=== PATIENT | male | born 1950 | race Caucasian/White ===

== ENCOUNTER 2020-10-14 02:40 | Outpatient (CLI) | payer MEDICARE, BC, SELFPAY ==
--- NOTE | 2020-10-14 07:15 | DI.US_ITS ---
Exam(s) US PROSTATE BIOPSY EXAM: guidance for prostate biopsy,PROSTATE DISORDER,N42.9,SECONDARY NEOPLASM OF COMPARISON: No exams were available for comparison TECHNIQUE: Ultrasound performed using standard protocol. FINDINGS: Sonography was provided for Dr. Berry during the performance of a ultrasound guided transrectal pros ott biopsy. Please refer to the procedure report for complete details. Prostatic volume is 85.3 cc. DATA REPOSITORY:
--- NOTE | 2020-10-14 08:40 | PROST_PTH ---
PATIENT: Anoop Preciado LOC: [facility] U#:[id number] AGE/SX: 70/M ROOM: RE10/14/[address]: Mario Berry MD : [id number] BED: DIS: 10/14/2020 SPEC #: [id number] RECD: 10/14/20 09:45 STATUS: RODRICK REAlexa #: [id number] LAURI: 10/14/20 08:[address]: Mario Berry DEPT: Surgical Specimen RECD BY: Yee Ochoa ENTERED: 10/14/20 10:06 SP TYPE: PROST OTHR DR: Johann Gordon Stephen Tissues: 1 - PROSTATE CURRETTINGS 2 - PROSTATE CURRETTINGS 3 - PROSTATE CURRETTINGS 4 - PROSTATE CURRETTINGS 5 - PROSTATE CURRETTINGS 6 - PROSTATE CURRETTINGS 7 - PROSTATE CURRETTINGS 8 - PROSTATE CURRETTINGS 9 - PROSTATE CURRETTINGS 10 - PROSTATE CURRETTINGS 11 - PROSTATE CURRETTINGS 12 - PROSTATE CURRETTINGS Procedures: GROSS AND MICRO LEVEL 4 Comments: [id number]
--- NOTE | 2020-10-14 09:23 | W.PM.OP ---
Date of service: 10/14/20 Time of Service: 09:23 Operative Note Operative Note DATE OF PROCEDURE: 10/14/20 PRE-OP DIAGNOSIS: Elevated PSA with metastasis to bone PROCEDURE: Transrectal ultrasound-guided biopsy of prostate SURGEON: Mario Berry ANESTHESIA TYPE: Local By Surgeon Refer to Anesthesia Record ESTIMATED BLOOD LOSS: 10 PATHOLOGY: other (Total of 12 laterally directed prostate biopsies) COMPLICATIONS: None Patient was transported to: no change Patient's condition: stable Indications: This is a 70-year-old gentleman who complained of weight loss and bone pain. He was found to have a PSA of 1420 ng/mL and on CT scan, he has multiple bony metastases consistent with a primary prostate cancer. He comes in for prostate biopsy to obtain a tissue diagnosis Findings: Prostate volume 85 cc Asymmetry of seminal vesicles with left side larger than right Loss of delineation between transition and peripheral zones Procedure Description: The patient was given a mechanical and antibiotic bowel prep. He was brought to the radiology suite on 05/17/2020. He was placed in the left lateral position. Transrectal imaging of the prostate was then performed using a variable megahertz transducer. The prostate was imaged in transverse and longitudinal planes. The prostatic volume was calculated to be 85 cc. The seminal vesicles were asymmetric with the left side being larger than the right raising concern for seminal vesicle involvement. There was loss of architecture between the peripheral and transition zones. A periprostatic nerve block was then performed using 1% Xylocaine without epinephrine. A total of 12 laterally directed biopsies were taken, labeled and sent to pathology for permanent section. The patient tolerated this procedure with no complications.
== END 2020-10-14 03:00 ==
PROVIDERS: PCP Family Medicine; Visit Provider Urology
DX: C61 Malignant neoplasm of prostate (principal); R97.20 Elevated prostate specific antigen [PSA]; C79.51 Secondary malignant neoplasm of bone; R63.4 Abnormal weight loss
CPT/HCPCS: 55700; 76872; 76942; 88305

== ENCOUNTER 2020-11-25 10:10 | Outpatient (RCR) | payer MEDICARE, BC, SELFPAY ==
[2020-11-25] MEDS: Normal Saline Flush 10 ML SYR IVP (10:34)
[2020-11-25 10:43] LABS: Abs Immature Grans 0.01 10^3/uL (0.0-0.06); Absolute Basophil Count 0.06 10^3/uL (0.0-0.2); Absolute Eosinophil Count 0.38 10^3/uL (0.0-0.7); Absolute Lymphocyte Count 1.11 10^3/uL (1.2-3.4); Absolute Monocyte Count 0.47 10^3/uL (0.1-0.8); Absolute Neutrophil Count 2.56 10^3/uL (1.2-6.7); Basophils % 1.3; Eosinophils % 8.3; HCT 35.7 % (40.0-50.0); HGB 12.2 g/dL (13.5-17.5); Immature Grans % 0.2; Lymphocytes % 24.2; MCHC 34.2 % (32.0-36.0); MCV 87.9 fL (80-95); MPV 9.3 fL (8.0-11.0); Monocytes % 10.2; Neutrophils % 55.8; Nucleated RBC 0 %; Platelet Count 234 10^3/uL (130-400); RBC 4.06 10^6/uL (4.36-5.78); RDW 12.7 % (11.8-14.1); RDW-SD 40.8 fL; WBC 4.59 10^3/uL (4.4-10.8)
[2020-11-25 11:02] LABS: ALT 21 U/L (16-63); AST 17 U/L (15-37); Albumin 3.9 g/dL (3.4-5.0); Alkaline Phosphatase 705 U/L (46-116); Anion Gap 10.4 mmol/L (3-11); BUN 26 mg/dL (7-18); Bilirubin, Total 0.5 mg/dL (0.2-1.0); CO2 23.6 mmol/L (21.0-32.0); CREATININE 0.8 mg/dL (0.70-1.30); Calcium 8.6 mg/dL (8.5-10.1); Chloride 107 mmol/L (98-107); Glucose 118 mg/dL (74-106); Potassium 3.7 mmol/L (3.5-5.1); Sodium 141 mmol/L (136-145); Total Protein 6.7 g/dL (6.4-8.2)
[2020-11-26 21:14] LABS: PSA, Ultrasensitive 39.2 ng/mL (<= 6.5)
[2020-11-28 12:05] LABS: Testosterone, Total <7.0 ng/dL (240-950)
== END 2020-12-09 23:59 | disposition home or self-care (01) ==
LOC: INF 10:10
PROVIDERS: PCP Family Medicine; Visit Provider Internal Medicine
DX: C61 Malignant neoplasm of prostate (principal); C79.51 Secondary malignant neoplasm of bone
CPT/HCPCS: 36415; 80053; 84153; 84403; 85025

== ENCOUNTER 2021-01-06 02:49 | Outpatient (RCR) | payer MEDICARE, BC, SELFPAY ==
[2020-12-16] MEDS: Normal Saline Flush 10 ML SYR IVP (10:48)
[2020-12-16 11:02] LABS: Abs Immature Grans 0.25 10^3/uL (0.0-0.06); Absolute Basophil Count 0.11 10^3/uL (0.0-0.2); Absolute Eosinophil Count 0.06 10^3/uL (0.0-0.7); Absolute Lymphocyte Count 1.33 10^3/uL (1.2-3.4); Absolute Monocyte Count 0.68 10^3/uL (0.1-0.8); Absolute Neutrophil Count 4.32 10^3/uL (1.2-6.7); Basophils % 1.6; Eosinophils % 0.9; HCT 36.2 % (40.0-50.0); Immature Grans % 3.7; Lymphocytes % 19.7; MCH 29.6 pg (27.0-33.0); MCHC 33.1 % (32.0-36.0); MCV 89.4 fL (80-95); MPV 9.4 fL (8.0-11.0); Monocytes % 10.1; Nucleated RBC 0 %; Platelet Count 285 10^3/uL (130-400); RBC 4.05 10^6/uL (4.36-5.78); RDW 13.2 % (11.8-14.1); RDW-SD 42.4 fL; WBC 6.75 10^3/uL (4.4-10.8)
[2020-12-16 11:18] LABS: ALT 26 U/L (16-63); AST 18 U/L (15-37); Albumin 3.9 g/dL (3.4-5.0); Alkaline Phosphatase 355 U/L (46-116); Anion Gap 7.5 mmol/L (3-11); BUN 19 mg/dL (7-18); Bilirubin, Total 0.4 mg/dL (0.2-1.0); CO2 28.5 mmol/L (21.0-32.0); CREATININE 0.8 mg/dL (0.70-1.30); Calcium 8.8 mg/dL (8.5-10.1); Chloride 107 mmol/L (98-107); Glucose 105 mg/dL (74-106); Potassium 4.2 mmol/L (3.5-5.1); Sodium 143 mmol/L (136-145)
[2020-12-17 13:13] LABS: PSA, Ultrasensitive 25.5 ng/mL (<= 6.5)
[2020-12-19 14:48] LABS: Testosterone, Total <7.0 ng/dL (240-950)
[2021-01-06] MEDS: Normal Saline Flush 10 ML SYR IVP (10:56)
[2021-01-06 11:02] LABS: Abs Immature Grans 0.06 10^3/uL (0.0-0.06); Absolute Basophil Count 0.07 10^3/uL (0.0-0.2); Absolute Eosinophil Count 0.11 10^3/uL (0.0-0.7); Absolute Lymphocyte Count 0.93 10^3/uL (1.2-3.4); Absolute Monocyte Count 0.63 10^3/uL (0.1-0.8); Absolute Neutrophil Count 4.04 10^3/uL (1.2-6.7); Basophils % 1.2; Eosinophils % 1.9; HCT 35.9 % (40.0-50.0); HGB 11.4 g/dL (13.5-17.5); Lymphocytes % 15.9; MCH 28.8 pg (27.0-33.0); MCHC 31.8 % (32.0-36.0); MCV 90.7 fL (80-95); MPV 9.3 fL (8.0-11.0); Monocytes % 10.8; Neutrophils % 69.2; Nucleated RBC 0 %; Platelet Count 293 10^3/uL (130-400); RBC 3.96 10^6/uL (4.36-5.78); RDW 14.6 % (11.8-14.1); RDW-SD 47.9 fL; WBC 5.84 10^3/uL (4.4-10.8)
[2021-01-06 11:15] LABS: ALT 25 U/L (16-63); AST 19 U/L (15-37); Albumin 3.9 g/dL (3.4-5.0); Alkaline Phosphatase 209 U/L (46-116); Anion Gap 6.1 mmol/L (3-11); BUN 20 mg/dL (7-18); Bilirubin, Total 0.5 mg/dL (0.2-1.0); CO2 27.9 mmol/L (21.0-32.0); CREATININE 0.9 mg/dL (0.70-1.30); Calcium 8.8 mg/dL (8.5-10.1); Chloride 106 mmol/L (98-107); Glucose 105 mg/dL (74-106); Potassium 4.2 mmol/L (3.5-5.1); Sodium 140 mmol/L (136-145)
[2021-01-07 11:34] LABS: PSA, Ultrasensitive 25.2 ng/mL (<= 6.5)
[2021-01-08 13:11] LABS: Testosterone, Total <7.0 ng/dL (240-950)
== END 2021-01-08 23:59 | disposition home or self-care (01) ==
LOC: INF 02:49
PROVIDERS: PCP Family Medicine; Visit Provider Internal Medicine
DX: C61 Malignant neoplasm of prostate (principal); C79.51 Secondary malignant neoplasm of bone
CPT/HCPCS: 36415; 80053; 84153; 84403; 85025

== ENCOUNTER 2021-01-27 02:14 | Outpatient (RCR) | payer MEDICARE, BC, SELFPAY ==
[2021-01-27 10:53] LABS: Abs Immature Grans 0.07 10^3/uL (0.0-0.06); Absolute Basophil Count 0.08 10^3/uL (0.0-0.2); Absolute Eosinophil Count 0.06 10^3/uL (0.0-0.7); Absolute Lymphocyte Count 1.02 10^3/uL (1.2-3.4); Absolute Monocyte Count 0.65 10^3/uL (0.1-0.8); Absolute Neutrophil Count 4.14 10^3/uL (1.2-6.7); Basophils % 1.3; HCT 32.8 % (40.0-50.0); HGB 10.3 g/dL (13.5-17.5); Immature Grans % 1.2; Lymphocytes % 16.9; MCH 28.5 pg (27.0-33.0); MCHC 31.4 % (32.0-36.0); MCV 90.9 fL (80-95); MPV 9.2 fL (8.0-11.0); Monocytes % 10.8; Neutrophils % 68.8; Nucleated RBC 0 %; Platelet Count 301 10^3/uL (130-400); RBC 3.61 10^6/uL (4.36-5.78); RDW 16.3 % (11.8-14.1); RDW-SD 53.1 fL; WBC 6.02 10^3/uL (4.4-10.8)
[2021-01-27 11:08] LABS: ALT 26 U/L (16-63); AST 19 U/L (15-37); Albumin 3.7 g/dL (3.4-5.0); Alkaline Phosphatase 126 U/L (46-116); BUN 22 mg/dL (7-18); Bilirubin, Total 0.5 mg/dL (0.2-1.0); CREATININE 0.8 mg/dL (0.70-1.30); Calcium 8.7 mg/dL (8.5-10.1); Chloride 107 mmol/L (98-107); Glucose 97 mg/dL (74-106); Potassium 3.9 mmol/L (3.5-5.1); Sodium 143 mmol/L (136-145); Total Protein 6.8 g/dL (6.4-8.2)
[2021-01-29 11:50] LABS: PSA, Ultrasensitive 25.5 ng/mL (<= 6.5)
[2021-01-29 11:56] LABS: Testosterone, Total <7.0 ng/dL (240-950)
== END 2021-02-08 23:59 | disposition home or self-care (01) ==
LOC: INF 02:14
PROVIDERS: PCP Family Medicine; Visit Provider Internal Medicine
DX: C61 Malignant neoplasm of prostate (principal); C79.51 Secondary malignant neoplasm of bone
CPT/HCPCS: 36415; 80053; 84153; 84403; 85025

== ENCOUNTER 2021-03-10 02:03 | Outpatient (RCR) | payer MEDICARE, BC, SELFPAY ==
[2021-02-18 10:53] LABS: Abs Immature Grans 0.03 10^3/uL (0.0-0.06); Absolute Basophil Count 0.09 10^3/uL (0.0-0.2); Absolute Eosinophil Count 0.06 10^3/uL (0.0-0.7); Absolute Lymphocyte Count 1.24 10^3/uL (1.2-3.4); Absolute Monocyte Count 0.66 10^3/uL (0.1-0.8); Absolute Neutrophil Count 3.79 10^3/uL (1.2-6.7); Basophils % 1.5; HCT 37.2 % (40.0-50.0); HGB 11.8 g/dL (13.5-17.5); Immature Grans % 0.5; Lymphocytes % 21.1; MCH 28.4 pg (27.0-33.0); MCHC 31.7 % (32.0-36.0); MCV 89.6 fL (80-95); MPV 9.5 fL (8.0-11.0); Monocytes % 11.2; Neutrophils % 64.7; Nucleated RBC 0 %; Platelet Count 297 10^3/uL (130-400); RBC 4.15 10^6/uL (4.36-5.78); RDW 16.4 % (11.8-14.1); RDW-SD 53.5 fL; WBC 5.87 10^3/uL (4.4-10.8)
[2021-02-18 11:10] LABS: Calcium 9.1 mg/dL (8.5-10.1); Glucose 91 mg/dL (74-106)
[2021-02-18 11:11] LABS: ALT 25 U/L (16-63); AST 19 U/L (15-37); Alkaline Phosphatase 120 U/L (46-116); Anion Gap 7.3 mmol/L (3-11); BUN 22 mg/dL (7-18); Bilirubin, Total 0.4 mg/dL (0.2-1.0); CO2 28.7 mmol/L (21.0-32.0); CREATININE 0.8 mg/dL (0.70-1.30); Chloride 108 mmol/L (98-107); Potassium 4.1 mmol/L (3.5-5.1); Sodium 144 mmol/L (136-145); Total Protein 7.2 g/dL (6.4-8.2)
[2021-02-19 15:10] LABS: PSA, Ultrasensitive 15.5 ng/mL (<= 6.5)
[2021-02-21 16:53] LABS: Testosterone, Total <7.0 ng/dL (240-950)
[2021-03-10 09:35] LABS: Abs Immature Grans 0.04 10^3/uL (0.0-0.06); Absolute Basophil Count 0.09 10^3/uL (0.0-0.2); Absolute Eosinophil Count 0.05 10^3/uL (0.0-0.7); Absolute Lymphocyte Count 1.05 10^3/uL (1.2-3.4); Absolute Monocyte Count 0.66 10^3/uL (0.1-0.8); Absolute Neutrophil Count 2.83 10^3/uL (1.2-6.7); Basophils % 1.9; Eosinophils % 1.1; HCT 37.1 % (40.0-50.0); HGB 11.8 g/dL (13.5-17.5); Immature Grans % 0.8; Lymphocytes % 22.2; MCH 27.8 pg (27.0-33.0); MCHC 31.8 % (32.0-36.0); MCV 87.5 fL (80-95); MPV 9.4 fL (8.0-11.0); Nucleated RBC 0 %; Platelet Count 247 10^3/uL (130-400); RBC 4.24 10^6/uL (4.36-5.78); RDW 16.2 % (11.8-14.1); RDW-SD 51.8 fL; WBC 4.72 10^3/uL (4.4-10.8)
[2021-03-10 09:52] LABS: ALT 20 U/L (16-63); AST 15 U/L (15-37); Albumin 3.8 g/dL (3.4-5.0); Alkaline Phosphatase 108 U/L (46-116); Anion Gap 6.6 mmol/L (3-11); BUN 19 mg/dL (7-18); Bilirubin, Total 0.4 mg/dL (0.2-1.0); CO2 28.4 mmol/L (21.0-32.0); CREATININE 0.7 mg/dL (0.70-1.30); Calcium 8.7 mg/dL (8.5-10.1); Chloride 106 mmol/L (98-107); Glucose 91 mg/dL (74-106); Potassium 3.9 mmol/L (3.5-5.1); Sodium 141 mmol/L (136-145); Total Protein 6.4 g/dL (6.4-8.2)
[2021-03-11 18:26] LABS: PSA, Ultrasensitive 8.4 ng/mL (<= 6.5)
[2021-03-14 10:00] LABS: Testosterone, Total <7.0 ng/dL (240-950)
== END 2021-03-10 23:59 | disposition home or self-care (01) ==
LOC: INF 02:03
PROVIDERS: PCP Family Medicine; Visit Provider Internal Medicine
DX: C61 Malignant neoplasm of prostate (principal); C79.51 Secondary malignant neoplasm of bone
CPT/HCPCS: 36415; 80053; 84153; 84403; 85025

== ENCOUNTER 2021-05-05 03:47 | Outpatient (RCR) | payer MEDICARE, BC, SELFPAY ==
[2021-05-05 13:29] LABS: Absolute Basophil Count 0.04 10^3/uL (0.0-0.2); Absolute Eosinophil Count 0.13 10^3/uL (0.0-0.7); Absolute Lymphocyte Count 0.85 10^3/uL (1.2-3.4); Absolute Neutrophil Count 4.09 10^3/uL (1.2-6.7); Basophils % 0.7; Eosinophils % 2.4; HCT 41.2 % (40.0-50.0); HGB 13.8 g/dL (13.5-17.5); Lymphocytes % 15.4; MCH 29.5 pg (27.0-33.0); MCHC 33.5 % (32.0-36.0); MPV 9.9 fL (8.0-11.0); Monocytes % 7.3; Neutrophils % 74.2; Nucleated RBC 0 %; Platelet Count 209 10^3/uL (130-400); RBC 4.68 10^6/uL (4.36-5.78); RDW 15.4 % (11.8-14.1); RDW-SD 49.9 fL; WBC 5.51 10^3/uL (4.4-10.8)
[2021-05-05 13:42] LABS: ALT 21 U/L (16-63); AST 12 U/L (15-37); Alkaline Phosphatase 130 U/L (46-116); Anion Gap 8.2 mmol/L (3-11); BUN 19 mg/dL (7-18); Bilirubin, Total 0.6 mg/dL (0.2-1.0); CO2 28.8 mmol/L (21.0-32.0); Calcium 8.7 mg/dL (8.5-10.1); Chloride 106 mmol/L (98-107); Glucose 98 mg/dL (74-106); Sodium 143 mmol/L (136-145); Total Protein 6.8 g/dL (6.4-8.2)
[2021-05-06 13:39] LABS: PSA, Ultrasensitive 5.3 ng/mL (<= 6.5)
[2021-05-08 11:13] LABS: Testosterone, Total <7.0 ng/dL (240-950)
== END 2021-05-11 23:59 | disposition home or self-care (01) ==
LOC: INF 03:47
PROVIDERS: PCP Family Medicine; Visit Provider Internal Medicine
DX: C61 Malignant neoplasm of prostate (principal)
CPT/HCPCS: 36415; 80053; 84153; 84403; 85025

== ENCOUNTER 2021-06-09 01:37 | Outpatient (RCR) | payer MEDICARE, BC, SELFPAY ==
[2021-06-09 14:30] LABS: Abs Immature Grans 0.01 10^3/uL (0.0-0.06); Absolute Basophil Count 0.06 10^3/uL (0.0-0.2); Absolute Eosinophil Count 0.12 10^3/uL (0.0-0.7); Absolute Lymphocyte Count 1.04 10^3/uL (1.2-3.4); Absolute Monocyte Count 0.42 10^3/uL (0.1-0.8); Absolute Neutrophil Count 4.15 10^3/uL (1.2-6.7); Eosinophils % 2.1; HCT 41.1 % (40.0-50.0); HGB 14.1 g/dL (13.5-17.5); Immature Grans % 0.2; Lymphocytes % 17.9; MCH 30.9 pg (27.0-33.0); MCHC 34.3 % (32.0-36.0); MCV 90.1 fL (80-95); MPV 9.5 fL (8.0-11.0); Monocytes % 7.2; Neutrophils % 71.6; Nucleated RBC 0 %; Platelet Count 225 10^3/uL (130-400); RBC 4.56 10^6/uL (4.36-5.78); RDW 13.9 % (11.8-14.1); RDW-SD 45.6 fL
[2021-06-09 15:33] LABS: ALT 21 U/L (16-63); AST 19 U/L (15-37); Albumin 4.3 g/dL (3.4-5.0); Alkaline Phosphatase 92 U/L (46-116); Anion Gap 8.6 mmol/L (3-11); BUN 19 mg/dL (7-18); Bilirubin, Total 0.7 mg/dL (0.2-1.0); CO2 27.4 mmol/L (21.0-32.0); CREATININE 0.7 mg/dL (0.70-1.30); Calcium 8.4 mg/dL (8.5-10.1); Chloride 105 mmol/L (98-107); Glucose 101 mg/dL (74-106); Potassium 4.4 mmol/L (3.5-5.1); Sodium 141 mmol/L (136-145); Total Protein 6.9 g/dL (6.4-8.2)
[2021-06-11 17:40] LABS: PSA, Ultrasensitive 3.8 ng/mL (<= 6.5)
[2021-06-16 13:36] LABS: Testosterone, Total <7.0 ng/dL (240-950)
== END 2021-07-09 23:59 | disposition home or self-care (01) ==
LOC: INF 01:37
PROVIDERS: PCP Family Medicine; Visit Provider Internal Medicine
DX: C61 Malignant neoplasm of prostate (principal)
CPT/HCPCS: 36415; 80053; 84153; 84403; 85025

== ENCOUNTER 2021-07-14 04:02 | Outpatient (RCR) | payer MEDICARE, BC, SELFPAY ==
[2021-07-14 13:55] LABS: ALT 22 U/L (16-63); AST 13 U/L (15-37); Albumin 4.2 g/dL (3.4-5.0); Alkaline Phosphatase 65 U/L (46-116); Anion Gap 5.2 mmol/L (3-11); BUN 19 mg/dL (7-18); Bilirubin, Total 0.9 mg/dL (0.2-1.0); CO2 29.8 mmol/L (21.0-32.0); CREATININE 0.8 mg/dL (0.70-1.30); Calcium 8.3 mg/dL (8.5-10.1); Chloride 107 mmol/L (98-107); Glucose 95 mg/dL (74-106); Potassium 3.7 mmol/L (3.5-5.1); Sodium 142 mmol/L (136-145); Total Protein 6.8 g/dL (6.4-8.2)
== END 2021-08-08 23:59 | disposition home or self-care (01) ==
LOC: INF 04:02
PROVIDERS: PCP Family Medicine; Visit Provider Internal Medicine
DX: C81.00 Nodular lymphocyte predominant Hodgkin lymphoma, unspecified site (principal); C79.51 Secondary malignant neoplasm of bone
CPT/HCPCS: 36415; 80053

== ENCOUNTER 2021-09-08 12:50 | Outpatient (RCR) | payer MEDICARE, BC, SELFPAY ==
[2021-08-11 12:24] LABS: Abs Immature Grans 0.03 10^3/uL (0.0-0.06); Absolute Basophil Count 0.05 10^3/uL (0.0-0.2); Absolute Eosinophil Count 0.18 10^3/uL (0.0-0.7); Absolute Lymphocyte Count 1.04 10^3/uL (1.2-3.4); Absolute Monocyte Count 0.48 10^3/uL (0.1-0.8); Absolute Neutrophil Count 2.98 10^3/uL (1.2-6.7); Basophils % 1.1; Eosinophils % 3.8; HGB 13.6 g/dL (13.5-17.5); Immature Grans % 0.6; Lymphocytes % 21.8; MCH 32.3 pg (27.0-33.0); MCV 95 fL (80-95); MPV 9.6 fL (8.0-11.0); Monocytes % 10.1; Neutrophils % 62.6; Platelet Count 191 10^3/uL (130-400); RBC 4.21 10^6/uL (4.36-5.78); RDW 12.7 % (11.8-14.1); RDW-SD 43.8 fL; WBC 4.76 10^3/uL (4.4-10.8)
[2021-08-11 12:35] LABS: ALT 21 U/L (16-63); AST 12 U/L (15-37); Albumin 4.2 g/dL (3.4-5.0); Alkaline Phosphatase 64 U/L (46-116); BUN 19 mg/dL (7-18); Bilirubin, Total 0.6 mg/dL (0.2-1.0); CREATININE 0.8 mg/dL (0.70-1.30); Calcium 8.6 mg/dL (8.5-10.1); Chloride 107 mmol/L (98-107); Glucose 107 mg/dL (74-106); Potassium 4.1 mmol/L (3.5-5.1); Sodium 143 mmol/L (136-145); Total Protein 6.9 g/dL (6.4-8.2)
[2021-08-12 18:04] LABS: PSA, Ultrasensitive 2.8 ng/mL (<= 6.5)
[2021-08-15 16:04] LABS: Testosterone, Total <7.0 ng/dL (240-950)
[2021-09-08 13:45] LABS: Abs Immature Grans 0.03 10^3/uL (0.0-0.06); Absolute Basophil Count 0.06 10^3/uL (0.0-0.2); Absolute Eosinophil Count 0.14 10^3/uL (0.0-0.7); Absolute Monocyte Count 0.42 10^3/uL (0.1-0.8); Absolute Neutrophil Count 4.24 10^3/uL (1.2-6.7); Eosinophils % 2.3; HCT 39.6 % (40.0-50.0); HGB 14.3 g/dL (13.5-17.5); Immature Grans % 0.5; Lymphocytes % 18.4; MCH 33.3 pg (27.0-33.0); MCHC 36.1 % (32.0-36.0); MCV 92 fL (80-95); MPV 9.7 fL (8.0-11.0); Neutrophils % 70.8; Platelet Count 219 10^3/uL (130-400); RBC 4.29 10^6/uL (4.36-5.78); RDW 12.7 % (11.8-14.1); RDW-SD 42.8 fL; WBC 5.99 10^3/uL (4.4-10.8)
[2021-09-08 14:18] LABS: ALT 21 U/L (16-63); AST 11 U/L (15-37); Albumin 4.5 g/dL (3.4-5.0); Alkaline Phosphatase 61 U/L (46-116); BUN 21 mg/dL (7-18); Bilirubin, Total 0.7 mg/dL (0.2-1.0); CREATININE 0.9 mg/dL (0.70-1.30); Calcium 9.4 mg/dL (8.5-10.1); Chloride 108 mmol/L (98-107); Glucose 114 mg/dL (74-106); Potassium 3.9 mmol/L (3.5-5.1); Sodium 146 mmol/L (136-145); Total Protein 7.3 g/dL (6.4-8.2)
[2021-09-09 12:15] LABS: PSA, Ultrasensitive 3.6 ng/mL (<= 6.5)
[2021-09-10 16:15] LABS: Testosterone, Total <7.0 ng/dL (240-950)
== END 2021-09-08 23:59 | disposition home or self-care (01) ==
LOC: INF 12:50
PROVIDERS: PCP Family Medicine; Visit Provider Internal Medicine
DX: C61 Malignant neoplasm of prostate (principal)
CPT/HCPCS: 36415; 80053; 84153; 84403; 85025

== ENCOUNTER 2021-10-06 02:24 | Outpatient (RCR) | payer MEDICARE, BC, SELFPAY ==
[2021-10-06 13:05] LABS: Abs Immature Grans 0.02 10^3/uL (0.0-0.06); Absolute Basophil Count 0.04 10^3/uL (0.0-0.2); Absolute Eosinophil Count 0.22 10^3/uL (0.0-0.7); Absolute Lymphocyte Count 0.94 10^3/uL (1.2-3.4); Absolute Monocyte Count 0.48 10^3/uL (0.1-0.8); Absolute Neutrophil Count 5.18 10^3/uL (1.2-6.7); Basophils % 0.6; Eosinophils % 3.2; HCT 38.1 % (40.0-50.0); HGB 13.9 g/dL (13.5-17.5); Immature Grans % 0.3; Lymphocytes % 13.7; MCH 33.6 pg (27.0-33.0); MCHC 36.5 % (32.0-36.0); MCV 92 fL (80-95); Neutrophils % 75.2; Platelet Count 195 10^3/uL (130-400); RBC 4.14 10^6/uL (4.36-5.78); RDW 12.5 % (11.8-14.1); RDW-SD 41.8 fL; WBC 6.88 10^3/uL (4.4-10.8)
[2021-10-06 13:23] LABS: ALT 22 U/L (16-63); AST 16 U/L (15-37); Albumin 4.3 g/dL (3.4-5.0); Alkaline Phosphatase 53 U/L (46-116); Anion Gap 8.9 mmol/L (3-11); BUN 19 mg/dL (7-18); Bilirubin, Total 0.7 mg/dL (0.2-1.0); CO2 26.1 mmol/L (21.0-32.0); CREATININE 0.9 mg/dL (0.70-1.30); Calcium 8.8 mg/dL (8.5-10.1); Chloride 108 mmol/L (98-107); Glucose 103 mg/dL (74-106); Potassium 3.6 mmol/L (3.5-5.1); Sodium 143 mmol/L (136-145); Total Protein 7.1 g/dL (6.4-8.2)
[2021-10-07 16:13] LABS: PSA, Ultrasensitive 3.6 ng/mL (<= 6.5)
[2021-10-10 15:00] LABS: Testosterone, Total <7.0 ng/dL (240-950)
== END 2021-10-08 23:59 | disposition home or self-care (01) ==
LOC: INF 02:24
PROVIDERS: PCP Family Medicine; Visit Provider Internal Medicine
DX: C61 Malignant neoplasm of prostate (principal)
CPT/HCPCS: 36415; 80053; 84153; 84403; 85025

== ENCOUNTER 2021-10-11 09:43 | Emergency (ER) | payer MEDICARE, BC, SELFPAY ==
[2021-10-11] VITALS (53 sets, daily range): BP systolic 132–178; BP diastolic 68–91; PULSE 64–98; RESP 10–25; TEMP 36.2; O2SAT 94–98
--- NOTE | 2021-10-11 09:45 | RT.EKG_ITS ---
APPROVED REPORT Exam: Resting ECG Reason for Exam: syncope Patient Location: E HR:66 bpm ECG Measurements Heart Rate 66 AXIS RI 141 P 46 QRSd 103 QRS 63 QT 412 T 25 QTc 433 Conclusion Sinus rhythm...normal P axis, V-rate 60- 99 Atrial premature complexes...SV complexes w/ short R-R intvls
--- NOTE | 2021-10-11 10:30 | ED.GENADUL_ITS ---
Discharge Plan Disposition Patient Disposition: HOME Condition: Improving Discharge Details Clinical Impression: Vertigo, Adverse drug effect, Hypertension Primary Care Provider: Daniel Hunt ED Provider: Oxana Granados Home Meds and New Rx's Prescriptions: New meclizine 25 mg tablet 25 mg PO TID Qty: 10 0RF Continued lactase 4,500 unit tablet 4,500 unit PO DAILY PRN Rx Instructions: administer with meals and/or snacks montelukast [Singulair] 10 mg tablet 10 mg PO DAILY fluticasone propionate [Flovent HFA] 110 mcg/actuation HFA aerosol inhaler 1 puff inhalation BID acetaminophen [Tylenol Extra Strength] 500 mg tablet 500 mg PO Q6H PRN bicalutamide [Casodex] 50 mg tablet 50 mg PO DAILY Qty: 30 0RF Rx Instructions: start after biopsy has been completed abiraterone [Zytiga] 500 mg Tablet 500 mg PO DAILY Rx Instructions: must be taken on empty stomach, at least 1 hr before or 2 hrs after a meal/food Discharge Instructions Instructions: Vertigo (ED), Hypertension (ED) Additional Instructions: Your imaging and labs are reassuring here today. However, I am quite concerned that your vertigo as well as a dry cough versus you have a side effect of your lisinopril. Please stop the lisinopril. Please encourage hydration. Please call your primary care office on Tuesday to schedule prompt follow-up to discuss beginning other medication. If you develop recurrence of your dizziness you may take the meclizine as prescribed. If you develop chest pain or shortness of breath, other new/worsening symptoms please seek care urgently once again Referrals: Daniel Hunt [Primary Care Provider] - Discharge Data Discharge Date/Time-TO BE ENTERED AT DEPARTURE: 10/11/21 15:18 Medical Decision Making Patient is a pleasant 71-year-old gentleman presenting today with chief complaint of dizziness and a syncopal episode. Patient brought in via EMS, accompanied by his . He reports that during this morning he was having dizziness which she describes as the room spinning with movement. States that he first underwent he rolled over in bed, lasted for 20 seconds. Then had this once again when he began getting and ambulating out of bed. Again less than 2 seconds. When bathroom going to use the restroom, patient became vertiginous with the room spinning, this was about 20 seconds. During this time, patient states that he slumped and fell to the ground. Did not strike his head. Not sure if he lost consciousness or not. If he did it would have been less than a second. Reports return to full baseline. Denies any injury or pain currently. Denies any recent illness. Denies any fevers or chills. Denies any recent headache, visual change, nausea, vomiting, change in bowel or bladder habits. Does report new onset dry cough at the same time he began lisinopril which was 10 days ago. Patient also on Zytiga for prostate cancer and has been on this medication for the past 6 months. On exam, patient appears non-toxic. Hypertensive at 174/74, VS otherwise stable. Neurologic exam intact. No nystagmus, patient is not actively having symptoms. No abnormality in ears. Lungs clear, normal cardiac exam. No LE edema/pain. 2+ distal pulses. Differential at this time is quite broad. This may be associated with his recent addition of Lisinopril. He has had cough. The dizzineess is most consistent with vertigo. Patient has room spinning sensation with movement, lasts only about 20 seconds. He does not have other symptoms to go with central cause or Menieres. He is afebrile with no evidence of [employer] infection. He denies SOB, CP, palpitations to suggest cardiac abnormality. However, his comorbidies to increase risk, plan to screen with troponin and ECG. With cancer dx, also consid ered PE and will screen with d-dimer. Labs reviewed. Mild anemia. CMP without sigfnicant abnormality. D-dimer WNL, troponin WNL, TSH normal, no findings suggestive of infection. With the new onset of vertigo, will obtain CT of head. His exam is not consistent with centtral source but his PMH increases risk and his possible syncope is unclear. FINDINGS: Brain: The cerebral sulci and the ventricles are within normal limits for the patient's age. There is mild ventricular, cortical sulcal prominence consistent with mild atrophy.. There is no evidence of acute hemorrhage, mass or shift. There is no evidence of an acute cortical or major vascular territory infarct. No abnormal extra-axial collections are identified. Intracranial vascular calcification is noted but there is no evidence of hyperdense thrombus. Cerebral ventricles: No significant ventricular enlargement/hydrocephalus. Paranasal sinuses: No significant sinus opacification or fluid level. Minimal sinus mucoperiosteal thickening. Mastoid air cells: No significant mastoid opacification Bones/joints: There is no acute bony abnormality Soft tissues: Subcutaneous soft tissues are unremarkable The IMPRESSION: No acute findings. FINDINGS: Lungs: There is no new airspace consolidation or CHF Pleural spaces: A large pleural effusion, or pneumothorax is not seen Heart/Mediastinum: Heart, mediastinum are unchanged. Bones/joints: There are multiple old right posterior rib fractures as seen on the patient's prior exam. The bony structures are diffusely heterogeneous consistent with the patient's known bony metastatic disease. There is mild compression deformity of several vertebrae, also seen on the patient's prior CT, this appears progressed within the midthoracic spine. IMPRESSION: 1. No evidence of active airspace disease 2. Bony structures are diffusely heterogeneous consistent with patient's known bony metastatic disease seen on CT exam. Interval increase in compression of a midthoracic vertebrae when compared with the patient's prior CT examination. Patient aware of bony abnormalities associated with prostate cancer. Will give disk so this can be cmopared by his oncology team. Repeat troponin WNL. Patient given Meclizine. Ambulated about departmeent with full resolution of symptoms. He remains hemodynamically stable and feels safe for discarge. Timing suggests this may be associated with Lisinopril and is certainly within the side effect profile. Will consult with PCP regarding stopping the Lisinopril and beginning another medication. Spoke with Dr. Mendoza with [facility] who recommended stopping the Lisinopril but holding on starting other medications. Discussed this with patient and his . They are in agreemetn with this plan. Will continue with Meclizine if he has recurrent symptoms. Strict return precautions given. Advised close f/u with PCP this week. All of his quesitons and concerns were addressed, he is in agreement with this plan. HPI General Date/Time Provider Initiated Documentation: 10/11/21 10:22 . Limitations to Documentation: no limitations . Information obtained by: patient, family, EMS and RN notes reviewed . History of Present Illness 71 year old M presents to the emergency department with the chief complaint of dry cough, vertigo, fall with possible LOC, described as moderate, with intensity rated at 1 (patient denies any pain). Patient started experiencing this day(s) (cough x 10 days, vertigo this AM intermittent) and it has been intermittent. Immobilization improves symptom(s), Movement worsens symptoms (rolling in bed, standing up to ambulate) . Patient notes cough (reports this started after beginning on lisinopril) and syncope (unsure what happened, not sure if he lost consciousness but feels if he did <1sec); denies confusion, chest pain, diaphoresis, fever/chills, headaches, malaise, nausea/vomiting, rash, seizure and shortness of breath. Related Data Home Medications Medication Instructions Recorded Confirmed bicalutamide 50 mg tablet (Casodex) 50 mg PO DAILY prostate cancer #30 10/09/20 10/11/21 tabs acetaminophen 500 mg tablet 500 mg PO Q6H PRN 10/14/20 10/11/21 (Tylenol Extra Strength) fluticasone propionate 110 1 puff inhalation BID 10/14/20 10/11/21 mcg/actuation HFA aerosol inhaler (Flovent HFA) lactase 4,500 unit tablet 4,500 unit PO DAILY PRN 10/14/20 10/11/21 montelukast 10 mg tablet 10 mg PO DAILY 10/14/20 10/11/21 (Singulair) abiraterone 500 mg tablet (Zytiga) 500 mg PO DAILY 10/11/21 10/11/21 meclizine 25 mg tablet 25 mg PO TID #10 tabs 10/11/21 Previous Rx's Medication Instructions Recorded bicalutamide 50 mg tablet (Casodex) 50 mg PO DAILY prostate cancer #30 10/09/20 tabs meclizine 25 mg tablet 25 mg PO TID #10 tabs 10/11/21 Allergies Allergy/AdvReac Type Severity Reaction Status Date / Time lactose Allergy Unverified 10/11/21 09:52 General Stated Complaint: Dizzy/Sync ROSAURA: 3 Review of Systems Constitutional Constitutional: Reports as per HPI, Denies chills, Denies fever(s), Denies frequent falls, Denies headache(s) and Denies weakness Eyes Eyes: Reports as per HPI, Denies blurry vision and Denies change in vision ENT Ears, Nose, Mouth, and Throat: Denies headache(s) and Denies neck pain Cardiovascular Cardiovascular: Reports as per HPI, Denies chest pain, Denies lightheadedness, Denies radiating jaw, neck or arm pain, Denies dyspnea and Denies dyspnea on exertion Respiratory Respiratory: Reports as per HPI, Denies chest congestion, Denies cough, Denies dyspnea and Denies dyspnea on exertion Gastrointestinal Gastrointestinal: Reports as per HPI, Denies abdominal pain, Denies change in bowel habits, Denies nausea and Denies vomiting Genitourinary Genitourinary: Reports system reviewed and no additional complaints, except as documented (denies change in urinary habits) Musculoskeletal Musculoskeletal: Reports as per HPI, Denies back pain, Denies myalgias, Denies muscle cramps, Denies neck pain and Denies numbness Integumentary/Breasts Skin/Breast: Reports as per HPI and Denies rash Neurologic Neurologic: Reports as per HPI, Denies abnormal movements, Denies abnormal speech, Denies behavioral changes, Denies confusion, Denies frequent falls, Denies headache(s), Denies localized weakness, Denies numbness, Denies sensory deficit and Denies weakness Psychiatric Psychiatric: Denies behavioral changes and Denies confusion PFSH All Active Problems (Updated 10/11/21 @ 15:11 by RHONA Bernal) Vertigo (Acute) Adverse drug effect (Acute) Hypertension (Chronic) Bilateral impacted cerumen (Acute) Sensorineural hearing loss (SNHL) of both ears (Acute) Bone metastasis (Acute) Elevated PSA (Acute) Social History Smoking/Tobacco Use Status: Never Smoking risk assessment performed?: Yes Alcohol Intake: current Alcohol Intake frequency: a few times a week Alcohol type: beer Drug use: Never Substance use type: does not use Do you feel safe at home: Yes Do you feel safe in your relationship?: Yes Exam Const General: cooperative, healthy appearing, comfortable, no acute distress, well developed and well groomed Nutritional Appearance: average body habitus and well nourished Orientation: alert, awake and oriented x3 HENMT Head: normal to inspection, no palpable skull fracture, normocephalic and atraumatic Ears: hearing grossly normal bilaterally, external ears normal and TM's normal bilaterally General nose exam: external nose normal Mouth: oral mucosae normal and moist mucous membranes Throat: posterior oropharynx normal Eyes General: appearance normal, both eyes and all related structures Alignment and Position: alignment normal Periorbital: periorbital findings normal Eyelids: eyelids normal Sclera: sclerae normal Cornea: corneas normal Pupils: PERRL EOM: EOM intact bilaterally and No nystagmus Neck Neck: normal visual inspection, full ROM, no lymphadenopathy and no meningeal signs Resp Effort & Inspection: normal respiratory effort, able to speak in complete sentences and no respiratory distress Auscultation: clear to auscultation bilaterally, no rales, no rhonchi and no wheezes Cardio Rate: regular rate Rhythm: regular rhythm Heart Sounds: S1 normal and S2 normal GI Inspection: normal to inspection and non-distended Palpation: soft, no hepatosplenomegaly, not firm, no guarding, not rigid and nontender Percussion: normal to percussion Auscultation: normal bowel sounds Back/Spine/Pelvis Cervical Spine: normal cervical lordosis and cervical ROM normal Skin General skin exam: no rashes or lesions noted Neuro General: patient alert, patient awake and patient oriented x3 Cranial Nerves: CN's II-XI intact bilaterally and no nystagmus Cognition: normal cognition Speech: speech normal Gait: normal gait Motor: muscle tone normal throughout, strength 5/5 throughout, no pronator drift, no movement abnormalities noted and no fasciculations Sensory Exam: no sensory deficits noted Coordination: [id number] test normal, dapg-np-[id number] test normal, Romberg test normal, Does not sway with eyes open and rapid alternating movement UE normal Extrem General: normal to inspection, capillary refill normal, no pedal edema and no calf tenderness Psych Appearance: grossly normal and well kempt Mental Status: mental status grossly normal Speech and Movement: speech and movement normal Course Vital Signs Vital signs: Vital Signs Temperature 36.2 C L 10/11/21 09:45 Pulse 66 10/11/21 09:45 Respiratory Rate 14 10/11/21 09:45 Blood Pressure 174/74 H 10/11/21 09:45 Pulse Oximetry 97 10/11/21 09:45 Temperature 36.2 C L 10/11/21 09:45 Pulse 66 10/11/21 09:45 Respiratory Rate 14 10/11/21 09:45 Respiratory Effort 10/11/21 09:54 Respiratory Depth Normal 10/11/21 09:54 Respiratory Pattern Normal 10/11/21 09:54 Blood Pressure 174/74 H 10/11/21 09:45 Blood Pressure Position Supine 10/11/21 09:45 Pulse Oximetry 97 10/11/21 09:45 Oxygen Delivery Method Room Air 10/11/21 09:45 Oxygen Flow Rate 0 10/11/21 09:45 Pain Level 0 10/11/21 09:45 PAWSS Have you Been Recently Intoxicated or Drunk Within the Last 30 days?: No Have you Ever Experienced Previous Episodes of Alcohol Withdrawal?: No Have you ever Experienced Withdrawal Seizures?: No Have you ever Experienced Delirium Tremens(DT)s?: No Have you ever undergone Alcohol Rehabilitation Treatment (i.e, inpt ot outpatient treatment programs)?: No Have you ever Experienced Blackouts?: No Have you ever Combined Alcohol with other Downers within the last 90 days?: No Have you ever Combined Alcohol with any other Substance of Abuse during the last 90 days?: No Positive Blood Alcohol level on Presentation? [PCS.BAL]: No Evidence of Increased Autonomic Activity (i.e. HR>120, tremor, sweating, agitation, nausea)?: No Result: 0
--- NOTE | 2021-10-11 10:45 | DI.CT_ITS ---
Exam(s) CT HEAD WO EXAM: CT HEAD WO CLINICAL HISTORY: vertigo with syncope. TECHNIQUE: Imaging Protocol: Axial computed tomography images with coronal and sagittal reformatted images were created and reviewed COMPARISON: No exams were available for comparison FINDINGS: There are no skull fractures nor fluid in the visualized paranasal sinuses. There is no evidence of intracranial hemorrhage, mass effect, or shift of midline structures. There are no extra-axial fluid collections. The ventricles are not enlarged or shifted and there is no blo od within the ventricular system nor within the basal cisterns. IMPRESSION: No acute intracranial findings on this noninfused CT scan of the brain. RADIATION DOSE DELIVERED: 758.56mGy.cm Total DLP DATA REPOSITORY: All CT scans at this facility are submitted to the National Radiology Data Registry (NRDR) Dose Index Registry (DIR) with the [employer] ([employer]). RADIATION OPTIMIZATION: All CT scans at this facility use at least one of these dose optimization te chniques: automated exposure control; mA and/or kV adjustment per patient size (includes targeted exa ms where dose is matched to clinical indication); or iterative reconstruction.
[2021-10-11 10:59] LABS: Abs Immature Grans 0.01 10^3/uL (0.0-0.06); Absolute Basophil Count 0.04 10^3/uL (0.0-0.2); Absolute Lymphocyte Count 0.95 10^3/uL (1.2-3.4); Absolute Monocyte Count 0.46 10^3/uL (0.1-0.8); Basophils % 0.9; Eosinophils % 4.5; HGB 12.9 g/dL (13.5-17.5); Immature Grans % 0.2; Lymphocytes % 21.3; MCH 32.6 pg (27.0-33.0); MCHC 34.9 % (32.0-36.0); MCV 93 fL (80-95); MPV 9.3 fL (8.0-11.0); Monocytes % 10.3; Neutrophils % 62.8; Platelet Count 178 10^3/uL (130-400); RBC 3.96 10^6/uL (4.36-5.78); RDW 12.3 % (11.8-14.1); RDW-SD 42.1 fL; WBC 4.46 10^3/uL (4.4-10.8)
--- NOTE | 2021-10-11 11:00 | DI.RAD_ITS ---
Exam(s) XR CHEST 2V PA LATERAL EXAM: XR CHEST 2V PA LATERAL CLINICAL HISTORY: syncope. TECHNIQUE: 2D digital imaging was performed. COMPARISON: CT CT CHEST W/ CNTRST from 10/08/2020 FINDINGS: 2 views: Heart size is normal. The mediastinum is not widened. Lungs are clear. No infiltrates nor pleural effusions. Compression fracture of vertebral bodies again noted. IMPRESSION: No acute pulmonary findings. Bones are heterogeneous consistent with patient's known history of osseous metastatic disease. DATA REPOSITORY: RADIATION DOSE DELIVERED:
[2021-10-11 11:21] LABS: ALT 20 U/L (16-63); AST 14 U/L (15-37); Alkaline Phosphatase 49 U/L (46-116); BUN 19 mg/dL (7-18); Bilirubin, Total 0.7 mg/dL (0.2-1.0); CREATININE 0.8 mg/dL (0.70-1.30); Calcium 8.6 mg/dL (8.5-10.1); Chloride 107 mmol/L (98-107); Glucose 104 mg/dL (74-106); Magnesium 2.1 mg/dL (1.8-2.4); Potassium 3.8 mmol/L (3.5-5.1); Sodium 141 mmol/L (136-145); TSH 0.94 uIU/mL (0.36-3.74); Total Protein 6.7 g/dL (6.4-8.2); Troponin I < 50 ng/L (<or=60)
--- NOTE | 2021-10-11 11:43 | DI.VRAD_ITS ---
PROCEDURE INFORMATION: Exam: CT Head Without Contrast Exam date and time: 10/11/2021 11:12 AM Age: 71 years old Clinical indication: Dizziness; Patient HX: Vertogo w/ syncope TECHNIQUE: Imaging protocol: Computed tomography of the head without contrast. Radiation optimization: All CT scans at this facility use at least one of these dose optimization techniques: automated exposure control; mA and/or kV adjustment per patient size (includes targeted exams where dose is matched to clinical indication); or iterative reconstruction. COMPARISON: No relevant prior studies available. FINDINGS: Brain: The cerebral sulci and the ventricles are within normal limits for the patient's age. There is mild ventricular, cortical sulcal prominence consistent with mild atrophy.. There is no evidence of acute hemorrhage, mass or shift. There is no evidence of an acute cortical or major vascular territory infarct. No abnormal extra-axial collections are identified. Intracranial vascular calcification is noted but there is no evidence of hyperdense thrombus. Cerebral ventricles: No significant ventricular enlargement/hydrocephalus. Paranasal sinuses: No significant sinus opacification or fluid level. Minimal sinus mucoperiosteal thickening. Mastoid air cells: No significant mastoid opacification Bones/joints: There is no acute bony abnormality Soft tissues: Subcutaneous soft tissues are unremarkable The IMPRESSION: No acute findings. Dictated and Authenticated by: Adriana Gustafson MD. Ordering:RORO Daigle MD
[2021-10-11 11:44] LABS: Bilirubin Negative (Negative); Blood Negative (Negative); Clarity Sl Cloudy (Clear); Glucose Negative (Negative); Ketones Negative (Negative); Leukocyte Esterase Negative (Negative); Nitrite Negative (Negative); Specific Gravity >= 1.030 (1.005-1.025); Urobilinogen 0.2 EU/dL (Up TO 0.2)
--- NOTE | 2021-10-11 11:49 | DI.VRAD_ITS ---
PROCEDURE INFORMATION: Exam: XR Chest Exam date and time: 10/11/2021 11:17 AM Age: 71 years old Clinical indication: Other: Syncope TECHNIQUE: Imaging protocol: Radiologic exam of the chest. Views: 2 views. COMPARISON: CT CHEST W/ CNTRST 10/08/2020 3:30 PM FINDINGS: Lungs: There is no new airspace consolidation or CHF Pleural spaces: A large pleural effusion, or pneumothorax is not seen Heart/Mediastinum: Heart, mediastinum are unchanged. Bones/joints: There are multiple old right posterior rib fractures as seen on the patient's prior exam. The bony structures are diffusely heterogeneous consistent with the patient's known bony metastatic disease. There is mild compression deformity of several vertebrae, also seen on the patient's prior CT, this appears progressed within the midthoracic spine. IMPRESSION: 1. No evidence of active airspace disease 2. Bony structures are diffusely heterogeneous consistent with patient's known bony metastatic disease seen on CT exam. Interval increase in compression of a midthoracic vertebrae when compared with the patient's prior CT examination. Dictated and Authenticated by: Adriana Gustafson MD. Ordering:RORO Daigle MD
[2021-10-11] MEDS: Meclizine 25 MG TAB PO (13:06)
[2021-10-11 13:35] LABS: D-Dimer 244 ng/mlFEU (<500)
--- NOTE | 2021-10-11 13:38 | NUR.NOTE ---
Pt. stood to use commode, became extremely dizzy and lowered himself to the floor. Nursing Note:
--- NOTE | 2021-10-11 14:00 | RT.EKG_ITS ---
APPROVED REPORT Exam: Resting ECG Reason for Exam: repeat Patient Location: E HR:71 bpm ECG Measurements Heart Rate 71 AXIS WI 140 P 31 QRSd 95 QRS 53 QT 407 T 13 QTc 442 Conclusion Sinus rhythm...normal P axis, V-rate 60- 99 Atrial premature complex...SV complex w/ short R-R interval
[2021-10-11 14:38] LABS: Troponin I < 50 ng/L (<or=60)
== END 2021-10-11 15:18 | disposition home or self-care (01) ==
PROVIDERS: Emergency Provider Physician Assistant; PCP Family Medicine
DX: R42 Dizziness and giddiness (principal); R05.9 Cough, unspecified; T46.4X5A Adverse effect of angiotensin-converting-enzyme inhibitors, initial encounter; I10 Essential (primary) hypertension; D64.9 Anemia, unspecified
CPT/HCPCS: 80053; 93005; 99284; 70450; 71046; 81003; 83735; 84443; 84484; 85025; 85379; 93010

== ENCOUNTER 2021-10-28 07:16 | Outpatient (RCR) | payer MEDICARE, BC, SELFPAY ==
[2021-10-28 12:27] LABS: Abs Immature Grans 0.04 10^3/uL (0.0-0.06); Absolute Basophil Count 0.07 10^3/uL (0.0-0.2); Absolute Eosinophil Count 0.15 10^3/uL (0.0-0.7); Absolute Lymphocyte Count 1.07 10^3/uL (1.2-3.4); Absolute Monocyte Count 0.41 10^3/uL (0.1-0.8); Absolute Neutrophil Count 3.83 10^3/uL (1.2-6.7); Basophils % 1.3; Eosinophils % 2.7; HCT 41.6 % (40.0-50.0); HGB 14.6 g/dL (13.5-17.5); Immature Grans % 0.7; Lymphocytes % 19.2; MCH 32.6 pg (27.0-33.0); MCHC 35.1 % (32.0-36.0); MCV 93 fL (80-95); MPV 9.7 fL (8.0-11.0); Monocytes % 7.4; Neutrophils % 68.7; Platelet Count 187 10^3/uL (130-400); RBC 4.48 10^6/uL (4.36-5.78); RDW-SD 41.1 fL; WBC 5.57 10^3/uL (4.4-10.8)
[2021-10-28 12:42] LABS: ALT 20 U/L (16-63); AST 13 U/L (15-37); Albumin 4.4 g/dL (3.4-5.0); Alkaline Phosphatase 60 U/L (46-116); Anion Gap 8.4 mmol/L (3-11); BUN 18 mg/dL (7-18); Bilirubin, Total 0.6 mg/dL (0.2-1.0); CO2 26.6 mmol/L (21.0-32.0); CREATININE 0.9 mg/dL (0.70-1.30); Calcium 8.9 mg/dL (8.5-10.1); Chloride 108 mmol/L (98-107); Glucose 122 mg/dL (74-106); Potassium 3.9 mmol/L (3.5-5.1); Sodium 143 mmol/L (136-145); Total Protein 7.3 g/dL (6.4-8.2)
[2021-10-29 16:30] LABS: PSA, Ultrasensitive 3.3 ng/mL (<= 6.5)
[2021-11-03 17:26] LABS: Testosterone, Total <7.0 ng/dL (240-950)
== END 2021-11-08 23:59 | disposition home or self-care (01) ==
LOC: INF 07:16
PROVIDERS: PCP Family Medicine; Visit Provider Internal Medicine
DX: C61 Malignant neoplasm of prostate (principal)
CPT/HCPCS: 36415; 80053; 84153; 84403; 85025

== ENCOUNTER 2021-11-13 09:59 | Observation (INO) | payer MEDICARE, BC, SELFPAY ==
[2021-11-13] VITALS (37 sets, daily range): BP systolic 105–160; BP diastolic 66–102; PULSE 57–99; RESP 12–23; TEMP 36.4–37.7; O2SAT 94–100
--- NOTE | 2021-11-13 09:59 | W.ED.GENAD ---
Discharge Plan Disposition Patient Disposition: [facility] Condition: Stable Discharge Details Clinical Impression: Acute upper GI bleeding Admit Date/Time: 11/13/21 12:22 Admit Provider: Herber Doll Attending Provider: Herber Doll Primary Care Provider: Daniel Hunt ED Provider: Kay Chin Discharge Data Discharge Date/Time-TO BE ENTERED AT DEPARTURE: 11/13/21 13:22 Medical Decision Making 1000 -- 71-year-old male with history of prostate cancer metastatic to bone currently on oral chemotherapy Zytiga since April 2021 presents with hematemesis since 730 this morning. It was reported to be a large amount of emesis at home and a small amount in route to the ED. Emesis basin inspected on arrival and notes approximately 20 cc of maroon-colored blood which is guaiac positive. EMS reported initial blood pressure was 79/60 and then repeat blood pressure 10 minutes later approximately 124/73. Vitals within normal limits on arrival. Patient appears comfortable and nontoxic. Normal oropharynx. Lungs clear bilaterally. Abdomen soft and nontender. Patient is taking prednisone since April 2021, current dose 5mg, so this may be be source of his GI bleed. Considering patient's age and history, will obtain screening labs including type and screen and start IV Protonix. Will obtain CT chest abdomen and pelvis and consult surgery. 1200 --labs and imaging reviewed. Hemoglobin 12. Normal white blood cell count. Magnesium 1.6, will replete. Troponin within normal limits. CT chest abdomen pelvis noted bony mets but no other acute findings. Patient has remained hemodynamically stable without any further vomiting. Case discussed with general surgery Dr. Gutierrez --no acute recommendations at this time and will monitor if endoscopy will be necessary. Case discussed with hospitalist who accepts patient for admission. Would like an additional 40 mg Protonix IV. Medical Records Medical records reviewed: Yes I reviewed the patient's medical records. Imaging Data Radiologic Study: Radiologist's impression: CT CHEST PE ABD ? PELVIS W CLINICAL HISTORY: ? maroon colored emesis,h/o prostate ca w/ bone mets. TECHNIQUE:? Imaging Protocol:? Axial CT angiography was performed with multi-slice acquisition and multi-planar and/or 3D reconstructions. CONTRAST MATERIAL:? Intravenous:? Omnipaque 350contrast volume:100 mL COMPARISON:? CT CT CHEST W/ CNTRST from 10/08/2020 CR,XR XR CHEST 2V PA ? LATERAL from 10/11/2021 FINDINGS: CHEST: Tracheobronchial tree: Patent where visualized. Pulmonary parenchyma: No focal consolidating infiltrates are seen.? There is again seen scarring in the lung bases.? No architectural distortion. Pulmonary Arteries: No evidence of filling defect to suggest pulmonary emboli. Mediastinum and Josefa: No dominant adenopathy or fluid collection. The esophagus is unremarkable. Visualized thyroid gland: Unremarkable.? Pleura: No effusion or pneumothorax. Heart: The heart is not dilated. No coronary artery calcifications are seen. No pericardial effusion. Aorta: Thoracic aorta non-dilated. No evidence of dissection.? Bones: There is diffuse sclerotic metastatic disease.? There again seen multiple thoracic compression fracture deformities which appears stable compared to the chest x-ray from 10/11/2021.? Several of these have developed and progressed since the CT scan of the chest from 10/08/2020 however.? There is retropulsion into the spinal canal resulting from the compression fractures at T6 and T2.? No significant central spinal canal stenosis results.? Soft tissues: Unremarkable.? ABDOMEN: Liver: Normal density. No measurable mass. Portal, Superior Mesenteric, and Splenic Veins: Unremarkable.? Gallbladder and Biliary Tract: No radiodense calculus or dilation. Pancreas: Normal density, no abnormal calcifications or inflammatory process. Spleen: Normal. Adrenals: No masses seen. Kidneys: Normal size, contour and axis. There is a nonobstructing stone in the lower pole of the left kidney.? Small simple renal cysts are present.? No follow-up is recommended.? Abdominal Aorta: Abdominal portion non-dilated. Atherosclerosis is present. Bowel: No obstruction or bowel wall thickening. No evidence of appendicitis.? There is diverticulosis seen in the colon but no evidence of acute diverticulitis.? Peritoneal Cavity: No ascites, collection or mesenteric inflammatory response. No free air. Lymph Nodes: Within normal limits. Bones: There is diffuse sclerotic metastatic disease.? Compression fracture deformities are seen at T12 and L3.? There is mild retropulsion of L3 but no significant central spinal canal stenosis is present.? Soft Tissues: There is a fat containing umbilical hernia.? Fat containing left inguinal hernia. PELVIS: Bladder: Symmetric distention, no gross wall thickening. Reproductive Organs: The prostate gland is enlarged.? Lymph Nodes: Within normal limits. Bones: Diffuse sclerotic metastatic disease.? IMPRESSION: 1. No evidence pulmonary embolism, thoracic aortic dissection or aneurysm. 2. Diffuse osseous metastatic disease with multiple known thoracic and lumbar compression fractures.? No definite new spinal fracture is identified. 3. Findings were discussed with the emergency department on the date of the examination.? Lab Data Lab results reviewed: Yes I reviewed the patient's lab results. Labs: Laboratory Tests Range/Units 11/13/21 11/13/21 11/13/21 10:00 10:00 10:00 WBC (4.4-10.8) 10^3/uL 8.93 RBC (4.36-5.78) 10^6/uL 3.72 L Hgb (13.5-17.5) g/dL 12.2 L Hct (40.0-50.0) % 35.0 L MCV (80-95) fL 94 MCH (27.0-33.0) pg 32.8 MCHC (32.0-36.0) % 34.9 RDW (11.8-14.1) % 12.1 Plt Count (130-400) 10^3/uL 193 MPV (8.0-11.0) fL 9.7 Immature Gran % 0.3 Neutrophils % 72.6 Lymphocytes % 16.3 Monocytes % 7.7 Eosinophils % 2.5 Basophils % 0.6 Nucleated RBC % (0.0-0.3) % 0.0 Absolute Neutrophils (1.2-6.7) 10^3/uL 6.48 Absolute Lymphocytes (1.2-3.4) 10^3/uL 1.46 Absolute Monocytes (0.1-0.8) 10^3/uL 0.69 Absolute Eosinophils (0.0-0.7) 10^3/uL 0.22 Absolute Basophils (0.0-0.2) 10^3/uL 0.05 PT (9.3-11.0) sec 11.7 H INR (0.9-1.1) 1.2 H APTT (21.0-27.5) sec 20.1 L Sodium (136-145) mmol/L 142 Potassium (3.5-5.1) mmol/L 3.4 L Chloride (98-107) mmol/L 105 Carbon Dioxide (21.0-32.0) mmol/L 31.8 Anion Gap (3-11) mmol/L 5.2 BUN (7-18) mg/dL 42 H Creatinine (0.70-1.30) mg/dL 0.9 Estimated GFR/1.73 m2 (mL/min/1.73m2) >= 60.00 Glucose (74-106) mg/dL 117 H Calcium (8.5-10.1) mg/dL 9.3 Magnesium (1.8-2.4) mg/dL 1.6 L Total Bilirubin (0.2-1.0) mg/dL 0.8 AST (15-37) U/L 15 ALT (16-63) U/L 22 Alkaline Phosphatase (46-116) U/L 41 L Troponin I (<or=60) ng/L < 50 Total Protein (6.4-8.2) g/dL 6.3 L Albumin (3.4-5.0) g/dL 3.7 Lipase (73-393) U/L 80 COVID-19 Source SARS-CoV-2 (PCR) (Negative) Patient ABO/Rh Antibody Screen Range/Units 11/13/21 11/13/21 10:00 12:15 WBC (4.4-10.8) 10^3/uL RBC (4.36-5.78) 10^6/uL Hgb (13.5-17.5) g/dL Hct (40.0-50.0) % MCV (80-95) fL MCH (27.0-33.0) pg MCHC (32.0-36.0) % RDW (11.8-14.1) % Plt Count (130-400) 10^3/uL MPV (8.0-11.0) fL Immature Gran % Neutrophils % Lymphocytes % Monocytes % Eosinophils % Basophils % Nucleated RBC % (0.0-0.3) % Absolute Neutrophils (1.2-6.7) 10^3/uL Absolute Lymphocytes (1.2-3.4) 10^3/uL Absolute Monocytes (0.1-0.8) 10^3/uL Absolute Eosinophils (0.0-0.7) 10^3/uL Absolute Basophils (0.0-0.2) 10^3/uL PT (9.3-11.0) sec INR (0.9-1.1) APTT (21.0-27.5) sec Sodium (136-145) mmol/L Potassium (3.5-5.1) mmol/L Chloride (98-107) mmol/L Carbon Dioxide (21.0-32.0) mmol/L Anion Gap (3-11) mmol/L BUN (7-18) mg/dL Creatinine (0.70-1.30) mg/dL Estimated GFR/1.73 m2 (mL/min/1.73m2) Glucose (74-106) mg/dL Calcium (8.5-10.1) mg/dL Magnesium (1.8-2.4) mg/dL Total Bilirubin (0.2-1.0) mg/dL AST (15-37) U/L ALT (16-63) U/L Alkaline Phosphatase (46-116) U/L Troponin I (<or=60) ng/L Total Protein (6.4-8.2) g/dL Albumin (3.4-5.0) g/dL Lipase (73-393) U/L COVID-19 Source Nasal/Nares SARS-CoV-2 (PCR) (Negative) Negative Patient ABO/Rh B Positive Antibody Screen NEGATIVE ECG Data Attestation: I personally reviewed and interpreted this ECG (s) as follows: Interpretation: rate of 89, sinus, normal axis, no stemi. HPI General Mode of arrival: ambulatory. Date/Time Provider Initiated Documentation: 11/13/21 10:00. Limitations to Documentation: no limitations. Information obtained by: patient. HPI Narrative: Patient is a 71-year-old male with a history of prostate cancer diagnosed in summer 2020 with metastasis to bone currently on Zytiga PO chemotherapy since April 2021 presents with vomiting blood since 730 this morning. Patient states he first awoke at 2 AM and vomited mainly clear with minuscule amount of bright red tinge. Patient states he thinks he then took his chemo medication but he is unsure. He states he then awoke at 730 this morning and vomited a large amount of maroon-colored blood. EMS reports there was a large pocket that was near hassle. Patient also vomited approximately 20 cc of maroon-colored blood in route to the ED. Patient was given Zofran and fluids per EMS and reports he feels better. He currently denies any nausea or pain. He does endorse that he has had occasional intermittent scattered abdominal pain which he currently denies. Patient states he otherwise has been feeling well and denies any recent illness including fever, chest pain, shortness of breath, vomiting, diarrhea or urinary symptoms. Patient states he was on chemotherapy infusion for several months in the fall and started oral chemotherapy in April. Patient states he is followed by Dr. Fields at [facility]. He states he rarely drinks alcohol and states his last alcohol use was 1 week ago. He denies any use of NSAIDs, aspirin or other anticoagulation. Related Data Home Medications Medication Instructions Recorded Confirmed acetaminophen 500 mg tablet 500 mg PO Q6H PRN 10/14/20 11/13/21 (Tylenol Extra Strength) fluticasone propionate 110 1 puff inhalation BID 10/14/20 11/13/21 mcg/actuation HFA aerosol inhaler (Flovent HFA) lactase 4,500 unit tablet 4,500 unit PO DAILY PRN 10/14/20 11/13/21 montelukast 10 mg tablet 10 mg PO DAILY 10/14/20 11/13/21 (Singulair) abiraterone 500 mg tablet (Zytiga) 1,500 mg PO DAILY 10/11/21 11/13/21 hydrochlorothiazide 25 mg tablet 1 tab PO DAILY 11/13/21 11/13/21 prednisone 5 mg tablet 1 tab PO DAILY 11/13/21 11/13/21 Allergies Allergy/AdvReac Type Severity Reaction Status Date / Time lactose Allergy Unverified 11/13/21 10:02 General Stated Complaint: GI Bleed ROSAURA: 3 Review of Systems All systems reviewed & are unremarkable except as noted in HPI and below Constitutional Constitutional: Denies chills, Denies excessive sweating, Denies fatigue, Denies fever(s), Denies weakness and Denies weight loss Eyes Eyes: Reports system reviewed and no additional complaints, except as documented and Denies blurry vision ENT Ears, Nose, Mouth, and Throat: Denies vertigo, Denies dizziness, Denies otalgia, Denies nasal congestion, Denies sore throat and Denies throat swelling Cardiovascular Cardiovascular: Denies chest pain, Denies syncope, Denies rapid heart rate and Denies dyspnea Respiratory Respiratory: Denies chest congestion, Denies cough, Denies pain on inspiration and Denies dyspnea Gastrointestinal Gastrointestinal: Denies abdominal pain, Denies diarrhea and Reports hematemesis Genitourinary Genitourinary: Denies hematuria, Denies dysuria and Denies flank pain Musculoskeletal Musculoskeletal: Denies back pain and Denies joint swelling Integumentary/Breasts Skin/Breast: Denies lesions and Denies rash Neurologic Neurologic: Denies behavioral changes, Denies confusion, Denies vertigo, Denies dizziness, Denies syncope, Denies localized weakness and Denies weakness Psychiatric Psychiatric: Denies behavioral changes, Denies confusion and Denies depression Endocrine Endocrine: Denies excessive sweating and Denies fatigue Hematologic/Lymphatic Hematologic/Lymphatic: Denies easy bruising and Denies lymphadenopathy Allergic/Immunologic Allergic/Immunologic: Denies throat swelling PFSH All Active Problems Hypertension (Chronic) Prostate cancer metastatic to bone (Acute) Acute upper GI bleeding (Acute) Upper GI bleeding (Acute) Bilateral impacted cerumen (Acute) Sensorineural hearing loss (SNHL) of both ears (Acute) Bone metastasis (Acute) Elevated PSA (Acute) Surgical History History of appendectomy Social History Smoking/Tobacco Use Status: Never Smoking risk assessment performed?: Yes Alcohol Intake: current Alcohol Intake frequency: a few times a week Alcohol type: beer Drug use: Never Substance use type: does not use Do you feel safe at home: Yes Do you feel safe in your relationship?: Yes Exam Const General: cooperative and no acute distress Orientation: alert, awake and oriented x3 HENMT Head: normal to inspection Ears: hearing grossly normal bilaterally and external ears normal General nose exam: external nose normal Face and sinus: normal facial exam Mouth: oral mucosae normal Teeth and gingiva: dentition normal Throat: posterior oropharynx normal Eyes General: appearance normal, both eyes and all related structures Eyelids: eyelids normal Pupils: PERRL EOM: EOM intact bilaterally Neck Neck: normal visual inspection Lymphatic: no lymphadenopathy noted Chest Chest: normal inspection of the chest Resp Effort & Inspection: normal respiratory effort and able to speak in complete sentences Auscultation: clear to auscultation bilaterally Cardio Rate: regular rate Rhythm: regular rhythm GI Inspection: normal to inspection Palpation: soft, not firm, no guarding, no hepatosplenomegaly, no masses and nontender Auscultation: normal bowel sounds Back/Spine/Pelvis Back: no CVA tenderness Skin General skin exam: no rashes or lesions noted Neuro General: patient alert and patient awake Cognition: normal cognition Speech: speech normal Gait: normal gait Motor: muscle tone normal throughout Sensory Exam: no sensory deficits noted Extrem General: normal to inspection, full ROM and capillary refill normal Psych Appearance: grossly normal Mental Status: mental status grossly normal Speech and Movement: speech and movement normal Affect: normal affect Thought Process: normal
--- NOTE | 2021-11-13 10:00 | RT.EKG_ITS ---
APPROVED REPORT Exam: Resting ECG Reason for Exam: weakness Patient Location: I HR:89 bpm ECG Measurements Heart Rate 89 AXIS NH 146 P 85 QRSd 101 QRS 63 QT 371 T -79 QTc 451 Conclusion Sinus rhythm...normal P axis, V-rate 60- 99. Sinus. Normal axis. No STEMI. I have reviewed and interpreted ECG and agree with software generated interpretation.
--- NOTE | 2021-11-13 10:15 | DI.CT_ITS ---
Exam(s) CT CHEST PE ABD PELVIS W EXAM: CT CHEST PE ABD PELVIS W CLINICAL HISTORY: maroon colored emesis,h/o prostate ca w/ bone mets. TECHNIQUE: Imaging Protocol: Axial CT angiography was performed with multi-slice acquisition and mu lti-planar and/or 3D reconstructions. CONTRAST MATERIAL: Intravenous: Omnipaque 350contrast volume:100 mL COMPARISON: CT CT CHEST W/ CNTRST from 10/08/2020 CR,XR XR CHEST 2V PA LATERAL from 10/11/2021 FINDINGS: CHEST: Tracheobronchial tree: Patent where visualized. Pulmonary parenchyma: No focal consolidating infiltrates are seen. There is again seen scarring in t he lung bases. No architectural distortion. Pulmonary Arteries: No evidence of filling defect to suggest pulmonary emboli. Mediastinum and Josefa: No dominant adenopathy or fluid collection. The esophagus is unremarkable. Visualized thyroid gland: Unremarkable. Pleura: No effusion or pneumothorax. Heart: The heart is not dilated. No coronary artery calcifications are seen. No pericardial effusion. Aorta: Thoracic aorta non-dilated. No evidence of dissection. Bones: There is diffuse sclerotic metastatic disease. There again seen multiple thoracic compression fracture deformities which appears stable compared to the chest x-ray from 10/11/2021. Several of the se have developed and progressed since the CT scan of the chest from 10/08/2020 however. There is ret ropulsion into the spinal canal resulting from the compression fractures at T6 and T2. No significan t central spinal canal stenosis results. Soft tissues: Unremarkable. ABDOMEN: Liver: Normal density. No measurable mass. Portal, Superior Mesenteric, and Splenic Veins: Unremarkable. Gallbladder and Biliary Tract: No radiodense calculus or dilation. Pancreas: Normal density, no abnormal calcifications or inflammatory process. Spleen: Normal. Adrenals: No masses seen. Kidneys: Normal size, contour and axis. There is a nonobstructing stone in the lower pole of the left kidney. Small simple renal cysts are present. No follow-up is recommended. Abdominal Aorta: Abdominal portion non-dilated. Atherosclerosis is present. Bowel: No obstruction or bowel wall thickening. No evidence of appendicitis. There is diverticulosis seen in the colon but no evidence of acute diverticulitis. Peritoneal Cavity: No ascites, collection or mesenteric inflammatory response. No free air. Lymph Nodes: Within normal limits. Bones: There is diffuse sclerotic metastatic disease. Compression fracture deformities are seen at T 12 and L3. There is mild retropulsion of L3 but no significant central spinal canal stenosis is pres ent. Soft Tissues: There is a fat containing umbilical hernia. Fat containing left inguinal hernia. PELVIS: Bladder: Symmetric distention, no gross wall thickening. Reproductive Organs: The prostate gland is enlarged. Lymph Nodes: Within normal limits. Bones: Diffuse sclerotic metastatic disease. IMPRESSION: 1. No evidence pulmonary embolism, thoracic aortic dissection or aneurysm. 2. Diffuse osseous metastatic disease with multiple known thoracic and lumbar compression fractures. No definite new spinal fracture is identified. 3. Findings were discussed with the emergency department on the date of the examination. RADIATION DOSE DELIVERED: 1,108.25mGy.cm Total DLP DATA REPOSITORY: All CT scans at this facility are submitted to the National Radiology Data Registry (NRDR) Dose Index Registry (DIR) with the [employer] ([employer]). RADIATION OPTIMIZATION: All CT scans at this facility use at least one of these dose optimization te chniques: automated exposure control; mA and/or kV adjustment per patient size (includes targeted exa ms where dose is matched to clinical indication); or iterative reconstruction.
[2021-11-13 10:16] LABS: Abs Immature Grans 0.03 10^3/uL (0.0-0.06); Absolute Basophil Count 0.05 10^3/uL (0.0-0.2); Absolute Eosinophil Count 0.22 10^3/uL (0.0-0.7); Absolute Lymphocyte Count 1.46 10^3/uL (1.2-3.4); Absolute Monocyte Count 0.69 10^3/uL (0.1-0.8); Absolute Neutrophil Count 6.48 10^3/uL (1.2-6.7); Basophils % 0.6; Eosinophils % 2.5; HGB 12.2 g/dL (13.5-17.5); Immature Grans % 0.3; Lymphocytes % 16.3; MCH 32.8 pg (27.0-33.0); MCHC 34.9 % (32.0-36.0); MCV 94 fL (80-95); MPV 9.7 fL (8.0-11.0); Monocytes % 7.7; Neutrophils % 72.6; Platelet Count 193 10^3/uL (130-400); RBC 3.72 10^6/uL (4.36-5.78); RDW 12.1 % (11.8-14.1); RDW-SD 42.1 fL; WBC 8.93 10^3/uL (4.4-10.8)
[2021-11-13 10:31] LABS: INR 1.2 (0.9-1.1); PTT Activated 20.1 sec (21.0-27.5); Prothrombin Time 11.7 sec (9.3-11.0)
[2021-11-13] MEDS: Pantoprazole 40 MG VIAL IVP ×3 (10:38→20:48)
[2021-11-13] MEDS: Normal Saline 1,000 ML 150 ML IV ×2 (10:39→17:18)
[2021-11-13 10:40] LABS: ALT 22 U/L (16-63); AST 15 U/L (15-37); Albumin 3.7 g/dL (3.4-5.0); Alkaline Phosphatase 41 U/L (46-116); Anion Gap 5.2 mmol/L (3-11); BUN 42 mg/dL (7-18); Bilirubin, Total 0.8 mg/dL (0.2-1.0); CO2 31.8 mmol/L (21.0-32.0); CREATININE 0.9 mg/dL (0.70-1.30); Calcium 9.3 mg/dL (8.5-10.1); Chloride 105 mmol/L (98-107); Glucose 117 mg/dL (74-106); Lipase 80 U/L (73-393); Magnesium 1.6 mg/dL (1.8-2.4); Potassium 3.4 mmol/L (3.5-5.1); Sodium 142 mmol/L (136-145); Total Protein 6.3 g/dL (6.4-8.2); Troponin I < 50 ng/L (<or=60)
[2021-11-13] MEDS: Normal Saline Flush 10 ML SYR IVP (11:18)
[2021-11-13] MEDS: MAGNESIUM SULFATE 1 GM/100 ML BAG IVPB (11:39)
[2021-11-13 12:23] LABS: Source Nasal/Nares
--- NOTE | 2021-11-13 12:24 | W.PM.HP.N ---
Date of service: 11/13/21 Time of Service: 12:24 Assessment and Plan Assessment and plan (1) Upper GI bleeding: Status: Acute Assessment and plan: received 80 mg IV protonix in ED, will continue 40 mg IV BID add carafate ac/hs surgical consult, endoscopy possibly as outpatient if remains stable cycle H&H monitor closely stop IV fluids and advance diet. (2) Prostate cancer metastatic to bone: Status: Acute Assessment and plan: followed by oncology abiraterone decreased to 3 tabs daily, 1500 mg, continue home dose takes prednisone 5 mg daily (3) Hypertension: Status: Chronic Assessment and plan: continue HCTZ discussed with Dr Cook History of Present Illness History of Present Illness Chief Complaint: upper GI bleed Narrative: This is a 71-year-old male with history of prostate cancer metastatic to bone currently on oral chemotherapy Zytiga since April 2021 presented to the ED with hematemesis starting in the morning. It was reported to be a large amount of emesis at home and a small amount in route to the ED.? Emesis basin inspected on arrival and notes approximately 20 cc of maroon-colored blood which is guaiac positive.? EMS reported initial blood pressure was 79/60 and then repeat blood pressure 10 minutes later approximately 124/73.? Vitals were within normal limits on arrival and stayed stable in the ED.? On exam abdomen soft and nontender.? Patient has been taking prednisone since April 2021, current dose 5mg, this is thought to be source of his GI bleed. The his labs and work up unremarkable. His case was discussed with general surgery, DR Gutierrez who is in agreement with medical management and observation overnight. He was given 80 mg IV protonix in the ED, he will be admitted to hospitalist services for monitoring. discussed with Dr Cook Review of Systems All systems reviewed & are unremarkable except as noted in HPI and below Constitutional Constitutional: Denies fever(s) and Denies weakness Eyes Eyes: Denies change in vision Cardiovascular Cardiovascular: Denies chest pain, Denies syncope, Denies rapid heart rate and Denies dyspnea Respiratory Respiratory: Denies cough and Denies dyspnea Gastrointestinal Gastrointestinal: Denies abdominal pain, Denies hematochezia, Denies heartburn, Reports diarrhea (one episode this morning, no blood, not tarry or dark) and Reports hematemesis Neurologic Neurologic: Denies syncope and Denies weakness Hematologic/Lymphatic Hematologic/Lymphatic: Denies easy bleeding and Denies easy bruising PFSH All Active Problems (Updated 11/13/21 @ 17:48 by Brianna Su NP) Hypertension (Chronic) Prostate cancer metastatic to bone (Acute) Acute upper GI bleeding (Acute) Upper GI bleeding (Acute) Bilateral impacted cerumen (Acute) Sensorineural hearing loss (SNHL) of both ears (Acute) Bone metastasis (Acute) Elevated PSA (Acute) Surgical History (Updated 11/13/21 @ 10:31 by Kay Chin DO) History of appendectomy Social History Smoking/Tobacco Use Status: Never Smoking risk assessment performed?: Yes Alcohol Intake: current Alcohol Intake frequency: a few times a week Alcohol type: beer Drug use: Never Substance use type: does not use Do you feel safe at home: Yes Do you feel safe in your relationship?: Yes Meds Allergies and Home Medications Allergies Allergy/AdvReac Type Severity Reaction Status Date / Time lactose Allergy Unverified 11/13/21 10:02 Home Medications Medication Instructions Recorded Confirmed Type acetaminophen 500 mg tablet 500 mg PO Q6H PRN 10/14/20 11/13/21 History (Tylenol Extra Strength) fluticasone propionate 110 1 puff inhalation BID 10/14/20 11/13/21 History mcg/actuation HFA aerosol inhaler (Flovent HFA) lactase 4,500 unit tablet 4,500 unit PO DAILY PRN 10/14/20 11/13/21 History montelukast 10 mg tablet 10 mg PO DAILY 10/14/20 11/13/21 History (Singulair) abiraterone 500 mg tablet (Zytiga) 1,500 mg PO DAILY 10/11/21 11/13/21 History hydrochlorothiazide 25 mg tablet 1 tab PO DAILY 11/13/21 11/13/21 History prednisone 5 mg tablet 1 tab PO DAILY 11/13/21 11/13/21 History Exam Const General: cooperative, comfortable and no acute distress Nutritional Appearance: average body habitus Orientation: alert, awake and oriented x3 HENMT Head: normal to inspection, normocephalic and atraumatic Mouth: oral mucosae normal Neck Neck: normal visual inspection Resp Effort & Inspection: normal respiratory effort Cardio Rate: regular rate Rhythm: regular rhythm GI Inspection: distended Palpation: soft and nontender Auscultation: hypoactive bowel sounds Skin General skin exam: no rashes or lesions noted Neuro General: patient alert, patient awake, patient oriented x3 and no focal motor deficits Extrem General: normal to inspection, full ROM and no pedal edema Results Labs Result diagrams: 11/13/21 16:07 11/13/21 10:00 Labs: Laboratory Results - last 24 hr 11/13/21 11/13/21 11/13/21 10:00 10:00 10:00 WBC 8.93 RBC 3.72 L Hgb 12.2 L Hct 35.0 L MCV 94 MCH 32.8 MCHC 34.9 RDW 12.1 Plt Count 193 MPV 9.7 Immature Gran % 0.3 Neutrophils % 72.6 Lymphocytes % 16.3 Monocytes % 7.7 Eosinophils % 2.5 Basophils % 0.6 Nucleated RBC % 0.0 Absolute Neutrophils 6.48 Absolute Lymphocytes 1.46 Absolute Monocytes 0.69 Absolute Eosinophils 0.22 Absolute Basophils 0.05 PT 11.7 H INR 1.2 H APTT 20.1 L Sodium 142 Potassium 3.4 L Chloride 105 Carbon Dioxide 31.8 Anion Gap 5.2 BUN 42 H Creatinine 0.9 Estimated GFR/1.73 m2 >= 60.00 Glucose 117 H Calcium 9.3 Magnesium 1.6 L Total Bilirubin 0.8 AST 15 ALT 22 Alkaline Phosphatase 41 L Troponin I < 50 Total Protein 6.3 L Albumin 3.7 Lipase 80 COVID-19 Source Patient ABO/Rh Antibody Screen 11/13/21 11/13/21 10:00 12:15 WBC RBC Hgb Hct MCV MCH MCHC RDW Plt Count MPV Immature Gran % Neutrophils % Lymphocytes % Monocytes % Eosinophils % Basophils % Nucleated RBC % Absolute Neutrophils Absolute Lymphocytes Absolute Monocytes Absolute Eosinophils Absolute Basophils PT INR APTT Sodium Potassium Chloride Carbon Dioxide Anion Gap BUN Creatinine Estimated GFR/1.73 m2 Glucose Calcium Magnesium Total Bilirubin AST ALT Alkaline Phosphatase Troponin I Total Protein Albumin Lipase COVID-19 Source Nasal/Nares Patient ABO/Rh B Positive Antibody Screen NEGATIVE Last Vital Signs Temp 36.4 C L 11/13/21 09:56 Pulse 92 H 11/13/21 11:42 Resp 23 11/13/21 11:43 BP 142/102 H 11/13/21 11:42 Pulse Ox 96 11/13/21 11:43 PAWSS Have you Been Recently Intoxicated or Drunk Within the Last 30 days?: No Have you Ever Experienced Previous Episodes of Alcohol Withdrawal?: No Have you ever Experienced Withdrawal Seizures?: No Have you ever Experienced Delirium Tremens(DT)s?: No Have you ever undergone Alcohol Rehabilitation Treatment (i.e, inpt ot outpatient treatment programs)?: No Have you ever Experienced Blackouts?: No Have you ever Combined Alcohol with other Downers within the last 90 days?: No Have you ever Combined Alcohol with any other Substance of Abuse during the last 90 days?: No Positive Blood Alcohol level on Presentation? [PCS.BAL]: No Evidence of Increased Autonomic Activity (i.e. HR>120, tremor, sweating, agitation, nausea)?: No Result: 0
[2021-11-13 13:13] LABS: COVID-19 PCR Negative (Negative)
[2021-11-13 16:12] LABS: HCT 34.5 % (40.0-50.0); HGB 12.3 g/dL (13.5-17.5)
[2021-11-13] MEDS: Sucralfate 1 GM TAB PO ×2 (17:03→20:48)
[2021-11-13] MEDS: Potassium Chloride Liquid 20 MEQ PKT 40 MEQ PO (17:49)
[2021-11-13 22:16] LABS: HCT 32.1 % (40.0-50.0); HGB 11.4 g/dL (13.5-17.5)
[2021-11-13] MEDS: Acetaminophen 500 MG TAB PO (22:39)
[2021-11-14 00:12] VITALS: TEMP 37.4
[2021-11-14 07:32] LABS: Abs Immature Grans 0.02 10^3/uL (0.0-0.06); Absolute Basophil Count 0.05 10^3/uL (0.0-0.2); Absolute Eosinophil Count 0.28 10^3/uL (0.0-0.7); Absolute Lymphocyte Count 1.25 10^3/uL (1.2-3.4); Absolute Monocyte Count 0.52 10^3/uL (0.1-0.8); Absolute Neutrophil Count 3.63 10^3/uL (1.2-6.7); Basophils % 0.9; Eosinophils % 4.9; HCT 30.3 % (40.0-50.0); HGB 10.3 g/dL (13.5-17.5); Immature Grans % 0.3; Lymphocytes % 21.7; MCH 32.2 pg (27.0-33.0); MCV 95 fL (80-95); MPV 10.1 fL (8.0-11.0); Neutrophils % 63.2; Platelet Count 169 10^3/uL (130-400); RDW 12.3 % (11.8-14.1); RDW-SD 42.9 fL; WBC 5.75 10^3/uL (4.4-10.8)
[2021-11-14 07:43] VITALS: BP 126/71; PULSE 85; RESP 20; TEMP 37.1; O2SAT 96
[2021-11-14 07:44] LABS: Anion Gap 6.2 mmol/L (3-11); BUN 29 mg/dL (7-18); CO2 27.8 mmol/L (21.0-32.0); CREATININE 0.9 mg/dL (0.70-1.30); Calcium 8.2 mg/dL (8.5-10.1); Chloride 107 mmol/L (98-107); Glucose 97 mg/dL (74-106); Magnesium 1.9 mg/dL (1.8-2.4); Potassium 3.4 mmol/L (3.5-5.1); Sodium 141 mmol/L (136-145)
[2021-11-14] MEDS: Pantoprazole 40 MG VIAL IVP ×2 (08:11→20:18)
[2021-11-14] MEDS: Sucralfate 1 GM TAB PO ×4 (08:12→20:18)
[2021-11-14] MEDS: hydroCHLOROthiazide 25 MG TAB PO (08:12)
[2021-11-14] MEDS: predniSONE 5 MG TAB PO (08:12)
[2021-11-14] MEDS: Montelukast 10 MG TAB PO (08:12)
[2021-11-14] MEDS: Normal Saline Flush 10 ML SYR IVP ×2 (08:12→20:18)
--- NOTE | 2021-11-14 08:39 | W.SURGCON ---
Date of service: 11/14/21 Time of Service: 07:00 Assessment and Plan Assessment and plan (1) Acute upper GI bleeding: Status: Acute Assessment and plan: I think it is a little unusual and that his hematemesis has no preceding upper abdominal symptoms like dyspepsia. I did review his CT scan, which looks pretty normal and pertains to the upper GI tract. In regards, I guess acute upper gastrointestinal hemorrhage remains the most compelling diagnosis. He does not have any particular risk factors, although he does take some prednisone, which I suppose may be ulcerogenic in some settings. Certainly, he seems to be tolerating the Protonix and sucralfate well. Although his initial hemoglobin is relatively stable, he has dropped 1 g over the past 24 hours or so. The fact that he is no longer having any more hematemesis, and no signs of melena or hematochezia are reassuring. I think I would just continue with the proton pump inhibition for now. I hope this will be self-limited. Obviously I am available for immediate EGD if his symptoms of active GI bleeding recur. Otherwise, I would continue medical management, and plan for a surveillance EGD as an outpatient. History of Present Illness History of Present Illness Chief Complaint: hematemesis Narrative: Also 71-year-old male with a past medical history that is most significant for metastatic prostate cancer who has been maintained on oral chemotherapy, in the emergency department this morning after several episodes of bloody vomiting. He says he noticed some rapid onset of nausea, very rapidly followed by bloody vomiting. He called 911, and was found to be hypotensive. This resolved spontaneously. During transport to the emergency department, he had another episode of retching and a small volume maroon-colored vomit. Emergency department estimate approximately 20 cc of fluid that was guaiac positive. Otherwise, he denied any abdominal complaints. Review of Systems Constitutional Constitutional: Denies anorexia, Reports body ache(s), Denies chills, Reports fatigue, Denies fever(s) and Denies poor appetite ENT Ears, Nose, Mouth, and Throat: Reports abnormal hearing, Denies change in voice and Denies hoarseness Cardiovascular Cardiovascular: Reports chest pain and Denies dyspnea Comments: He says he gets intermittent chest pain that he attributes to the bony mets of his prostate Respiratory Respiratory: Denies chest congestion, Denies cough and Denies dyspnea Gastrointestinal Gastrointestinal: Denies abdominal pain, Denies belching, Denies melena, Denies bloating, Denies hematochezia, Denies change in bowel habits, Denies coffee ground emesis, Denies dyspepsia, Denies heartburn, Reports nausea and Reports hematemesis Musculoskeletal Musculoskeletal: Reports back pain and Reports myalgias Neurologic Neurologic: Reports abnormal hearing, Denies behavioral changes and Denies paresthesias Psychiatric Psychiatric: Denies behavioral changes Endocrine Endocrine: Reports fatigue Hematologic/Lymphatic Hematologic/Lymphatic: Denies easy bleeding and Denies easy bruising PFSH All Active Problems Hypertension (Chronic) Prostate cancer metastatic to bone (Acute) Acute upper GI bleeding (Acute) Upper GI bleeding (Acute) Bilateral impacted cerumen (Acute) Sensorineural hearing loss (SNHL) of both ears (Acute) Bone metastasis (Acute) Elevated PSA (Acute) Surgical History History of appendectomy Social History Smoking/Tobacco Use Status: Never Smoking risk assessment performed?: Yes Alcohol Intake: current Alcohol Intake frequency: a few times a week Alcohol type: beer Drug use: Never Substance use type: does not use Do you feel safe at home: Yes Do you feel safe in your relationship?: Yes Exam Const General: cooperative, healthy appearing and comfortable Nutritional Appearance: average body habitus Orientation: alert, awake and oriented x3 Neck Neck: normal visual inspection, full ROM and no lymphadenopathy Chest Chest: normal inspection of the chest Resp Effort & Inspection: normal respiratory effort, no respiratory distress and no tracheal deviation Auscultation: clear to auscultation bilaterally Cardio Jugular venous pressure: no JVD Rate: regular rate Rhythm: regular rhythm Heart Sounds: S1 normal, S2 normal and no murmurs GI Inspection: normal to inspection and non-distended Palpation: soft, no guarding, hernia (Reducible umbilical) and nontender Percussion: normal to percussion Auscultation: normal bowel sounds Skin General skin exam: turgor normal Extrem Right lower extremity: no edema Left lower extremity: no edema Psych Appearance: grossly normal Results Last Vital Signs Temp 98.8 F 11/14/21 07:43 Pulse 85 11/14/21 07:43 Resp 20 11/14/21 07:43 BP 126/71 11/14/21 07:43 Pulse Ox 96 11/14/21 07:43 Labs Result diagrams: 11/14/21 06:32 11/14/21 06:32 Labs: Laboratory Results - last 24 hr 11/13/21 11/13/21 11/13/21 10:00 10:00 10:00 WBC 8.93 RBC 3.72 L Hgb 12.2 L Hct 35.0 L MCV 94 MCH 32.8 MCHC 34.9 RDW 12.1 Plt Count 193 MPV 9.7 Immature Gran % 0.3 Neutrophils % 72.6 Lymphocytes % 16.3 Monocytes % 7.7 Eosinophils % 2.5 Basophils % 0.6 Nucleated RBC % 0.0 Absolute Neutrophils 6.48 Absolute Lymphocytes 1.46 Absolute Monocytes 0.69 Absolute Eosinophils 0.22 Absolute Basophils 0.05 PT 11.7 H INR 1.2 H APTT 20.1 L Sodium 142 Potassium 3.4 L Chloride 105 Carbon Dioxide 31.8 Anion Gap 5.2 BUN 42 H Creatinine 0.9 Estimated GFR/1.73 m2 >= 60.00 Glucose 117 H Calcium 9.3 Magnesium 1.6 L Total Bilirubin 0.8 AST 15 ALT 22 Alkaline Phosphatase 41 L Troponin I < 50 Total Protein 6.3 L Albumin 3.7 Lipase 80 COVID-19 Source SARS-CoV-2 (PCR) Patient ABO/Rh Antibody Screen 11/13/21 11/13/21 11/13/21 10:00 12:15 16:07 WBC RBC Hgb 12.3 L Hct 34.5 L MCV MCH MCHC RDW Plt Count MPV Immature Gran % Neutrophils % Lymphocytes % Monocytes % Eosinophils % Basophils % Nucleated RBC % Absolute Neutrophils Absolute Lymphocytes Absolute Monocytes Absolute Eosinophils Absolute Basophils PT INR APTT Sodium Potassium Chloride Carbon Dioxide Anion Gap BUN Creatinine Estimated GFR/1.73 m2 Glucose Calcium Magnesium Total Bilirubin AST ALT Alkaline Phosphatase Troponin I Total Protein Albumin Lipase COVID-19 Source Nasal/Nares SARS-CoV-2 (PCR) Negative Patient ABO/Rh B Positive Antibody Screen NEGATIVE 11/13/21 11/14/21 11/14/21 22:10 06:32 06:32 WBC 5.75 RBC 3.20 L Hgb 11.4 L 10.3 L Hct 32.1 L 30.3 L MCV 95 MCH 32.2 MCHC 34.0 RDW 12.3 Plt Count 169 MPV 10.1 Immature Gran % 0.3 Neutrophils % 63.2 Lymphocytes % 21.7 Monocytes % 9.0 Eosinophils % 4.9 Basophils % 0.9 Nucleated RBC % 0.0 Absolute Neutrophils 3.63 Absolute Lymphocytes 1.25 Absolute Monocytes 0.52 Absolute Eosinophils 0.28 Absolute Basophils 0.05 PT INR APTT Sodium 141 Potassium 3.4 L Chloride 107 Carbon Dioxide 27.8 Anion Gap 6.2 BUN 29 H Creatinine 0.9 Estimated GFR/1.73 m2 >= 60.00 Glucose 97 Calcium 8.2 L Magnesium 1.9 Total Bilirubin AST ALT Alkaline Phosphatase Troponin I Total Protein Albumin Lipase COVID-19 Source SARS-CoV-2 (PCR) Patient ABO/Rh Antibody Screen
--- NOTE | 2021-11-14 09:15 | INITIAL_ITS ---
- If Service Date Differs Date of service: 11/14/21 Time of Service: 09:15 Care Management Initial Assess REASON FOR HOSPITALIZATION:: Upper GI bleeding, Prostate cancer metastatic to bone PAST MEDICAL HISTORY/PAST SURGICAL HISTORY:: All Active Problems (Updated 11/13/21 @ 17:48 by Brianna Su NP). Hypertension (Chronic). Prostate cancer metastatic to bone (Acute). Acute upper GI bleeding (Acute). Upper GI bleeding (Acute). Bilateral impacted cerumen (Acute). Sensorineural hearing loss (SNHL) of both ears (Acute). Bone metastasis (Acute). Elevated PSA (Acute). Surgical History (Updated 11/13/21 @ 10:31 by aKy Chin DO). History of appendectomy PREVIOUS FUNCTIONAL STATUS/SOCIAL/FAMILY SUPPORTS:: Anoop lives in [facility] [place] with his Mary. He drives and is independent at baseline. CURRENT FUNCTIONAL STATUS:: Anoop was sitting up in bed. He is alert, oriented and engages in conversation. ADVANCE DIRECTIVES:: None on file, CM will offer forms. Has patient been provided with info about the portal/API?: Yes Did the patient sign up for the portal?: Yes (Prior to admission) CODE STATUS:: Full Code INSURANCE COVERAGE / FINANCIAL ISSUES:: BS. Medicare PRIMARY CARE PHYSICIAN:: Daniel Hunt POTENTIAL DISCHARGE NEEDS:: Outpt EGD and Follow up appointments, discharge plan of care PATIENT/FAMILY EDUCATION NEEDS:: Review discharge instructions, limitations, medications and plan to follow up with community providers. ask me three. TRANSPORTATION:: Via private vehicle with family. PLAN:: Anticipate Anoop will discharge home via private vehicle with family when medically ready. He will follow up with his community providers and discharge plan of care as prescribed.
[2021-11-14] MEDS: POTASSIUM CHLORIDE 10 MEQ/100 ML BAG 100 MEQ IVPB ×4 (10:58→17:12)
[2021-11-14 15:37] VITALS: BP 122/78; PULSE 78; RESP 16; TEMP 37.4; O2SAT 96
--- NOTE | 2021-11-14 17:18 | W.PM.PROGNOT ---
Date of Service Date of service: 11/14/21 Time of Service: 12:00 Assessment and Plan Assessment and plan (1) Upper GI bleeding: Status: Acute Assessment and plan: received 80 mg IV protonix in ED, will continue 40 mg IV BID add carafate ac/hs surgical consult, EGD out patient cycle H&H 02/07 down from will repeat 11/14 Hematest stool monitor closely stop IV fluids and advance diet. (2) Prostate cancer metastatic to bone: Status: Acute Assessment and plan: followed by oncology abiraterone decreased to 3 tabs daily, 1500 mg, continue home dose takes prednisone 5 mg daily (3) Hypertension: Status: Chronic Assessment and plan: continue HCTZ discussed with Dr Doll Subjective Subjective Patient reports: no new complaints Exam Narrative Exam Narrative: Sitting up in a chair, awake, alert without complaints. Const General: cooperative, healthy appearing and comfortable Nutritional Appearance: average body habitus Orientation: alert, awake and oriented x3 Neck Neck: normal visual inspection, full ROM and no lymphadenopathy Chest Chest: normal inspection of the chest Resp Effort & Inspection: normal respiratory effort, no respiratory distress and no tracheal deviation Auscultation: clear to auscultation bilaterally Cardio Jugular venous pressure: no JVD Rate: regular rate Rhythm: regular rhythm Heart Sounds: S1 normal, S2 normal and no murmurs GI Inspection: normal to inspection and non-distended Palpation: soft, no guarding, hernia (Reducible umbilical) and nontender Percussion: normal to percussion Auscultation: normal bowel sounds Skin General skin exam: turgor normal Extrem Right lower extremity: no edema Left lower extremity: no edema Psych Appearance: grossly normal Objective Last Vital Signs Temp 37.4 C 11/14/21 15:37 Pulse 78 11/14/21 15:37 Resp 16 11/14/21 15:37 BP 122/78 11/14/21 15:37 Pulse Ox 96 11/14/21 15:37 Laboratory Results - last 24 hr 11/13/21 11/14/21 11/14/21 22:10 06:32 06:32 WBC 5.75 RBC 3.20 L Hgb 11.4 L 10.3 L Hct 32.1 L 30.3 L MCV 95 MCH 32.2 MCHC 34.0 RDW 12.3 Plt Count 169 MPV 10.1 Immature Gran % 0.3 Neutrophils % 63.2 Lymphocytes % 21.7 Monocytes % 9.0 Eosinophils % 4.9 Basophils % 0.9 Nucleated RBC % 0.0 Absolute Neutrophils 3.63 Absolute Lymphocytes 1.25 Absolute Monocytes 0.52 Absolute Eosinophils 0.28 Absolute Basophils 0.05 Sodium 141 Potassium 3.4 L Chloride 107 Carbon Dioxide 27.8 Anion Gap 6.2 BUN 29 H Creatinine 0.9 Estimated GFR/1.73 m2 >= 60.00 Glucose 97 Calcium 8.2 L Magnesium 1.9 Reviewed Pertinent PMH: Yes PAWSS Have you Been Recently Intoxicated or Drunk Within the Last 30 days?: No Have you Ever Experienced Previous Episodes of Alcohol Withdrawal?: No Have you ever Experienced Withdrawal Seizures?: No Have you ever Experienced Delirium Tremens(DT)s?: No Have you ever undergone Alcohol Rehabilitation Treatment (i.e, inpt ot outpatient treatment programs)?: No Have you ever Experienced Blackouts?: No Have you ever Combined Alcohol with other Downers within the last 90 days?: No Have you ever Combined Alcohol with any other Substance of Abuse during the last 90 days?: No Positive Blood Alcohol level on Presentation? [PCS.BAL]: No Evidence of Increased Autonomic Activity (i.e. HR>120, tremor, sweating, agitation, nausea)?: No Result: 0
[2021-11-14 23:01] VITALS: BP 115/71; PULSE 70; RESP 18; TEMP 37; O2SAT 97
[2021-11-15] MEDS: Montelukast 10 MG TAB PO (07:31)
[2021-11-15] MEDS: hydroCHLOROthiazide 25 MG TAB PO (07:31)
[2021-11-15] MEDS: Normal Saline Flush 10 ML SYR IVP (07:31)
[2021-11-15] MEDS: Sucralfate 1 GM TAB PO ×2 (07:31→11:41)
[2021-11-15] MEDS: Pantoprazole 40 MG VIAL IVP (07:31)
[2021-11-15] MEDS: predniSONE 5 MG TAB PO (07:31)
[2021-11-15 07:36] LABS: Abs Immature Grans 0.02 10^3/uL (0.0-0.06); Absolute Basophil Count 0.04 10^3/uL (0.0-0.2); Absolute Eosinophil Count 0.29 10^3/uL (0.0-0.7); Absolute Lymphocyte Count 1.15 10^3/uL (1.2-3.4); Absolute Monocyte Count 0.33 10^3/uL (0.1-0.8); Absolute Neutrophil Count 2.26 10^3/uL (1.2-6.7); Eosinophils % 7.1; HCT 27.2 % (40.0-50.0); Immature Grans % 0.5; Lymphocytes % 28.1; MCH 33.6 pg (27.0-33.0); MCHC 36.8 % (32.0-36.0); MCV 91 fL (80-95); MPV 9.7 fL (8.0-11.0); Monocytes % 8.1; Neutrophils % 55.2; Platelet Count 143 10^3/uL (130-400); RBC 2.98 10^6/uL (4.36-5.78); RDW-SD 39.8 fL; WBC 4.09 10^3/uL (4.4-10.8)
[2021-11-15 07:45] LABS: BUN 15 mg/dL (7-18); CREATININE 0.8 mg/dL (0.70-1.30); Calcium 8.1 mg/dL (8.5-10.1); Chloride 108 mmol/L (98-107); Glucose 97 mg/dL (74-106); Potassium 3.5 mmol/L (3.5-5.1); Sodium 143 mmol/L (136-145)
[2021-11-15 08:01] VITALS: BP 132/77; PULSE 70; RESP 18; TEMP 36.4; O2SAT 98
--- NOTE | 2021-11-15 10:53 | DSE_ITS ---
Date of service: 11/15/21 Time of Service: 10:55 DS: Diagnosis Discharge Diagnosis (1) Upper GI bleeding: Status: Acute (2) Prostate cancer metastatic to bone: Status: Acute (3) Hypertension: Status: Chronic Discharge Plan Disposition Patient Disposition: HOME Condition: Stable Discharge Details Reason For Visit: Upper GI Bleed Admit Date/Time: 11/13/21 12:22 Admit Provider: Herber Doll Attending Provider: Herber Doll Primary Care Provider: Daniel Hunt Hospital Course Hospital Course: This is a 71-year-old male patient with a past medical history of prostate cancer, metastatic to bone currently on oral chemotherapy - Zytiga - since April 2021, presented to the [facility] ED with hematemesis that starting in the morning. It was reported to be a large amount of emesis at home and a small amount in route to the ED.? Emesis basin inspected on arrival and notes approximately 20 cc of maroon-colored blood which is guaiac positive.? EMS reported initial blood pressure was 79/60 and then repeat blood pressure 10 minutes later approximately 124/73.? Vitals were within normal limits on arrival and stayed stable in the ED.? On initial exam his abdomen was soft and nontender.? The patient has been taking prednisone since April 2021, current dose 5mg, this is thought to be source of his GI bleed. The rest of his labs and work up were unremarkable.? His case was discussed with general surgery, Dr Gutierrez who is in agreement with medical management and observation overnight.? He was given 80 mg IV protonix in the ED, and was admitted to hospitalist services for monitoring.?He was seen by Dr Gutierrez and he recommended continuing PPI, hoping this will be self-limiting, and out patient EGD. This morning, he has had no more vomiting, no diarrhea, and is feeling well, asking to go home. His vital signs are stable. His labs are unremarkable. We will continue PPI and carafate until follow up. He is discharged to home without services to followup with surgery for OP EGD. discussed with Dr Doll Home Meds and New Rx's Prescriptions: New sucralfate 1 gram Tablet 1 g PO AC & HS Qty: 30 0RF pantoprazole 40 mg tablet,delayed release (DR/EC) 40 mg PO BID Qty: 14 0RF Continued lactase 4,500 unit tablet 4,500 unit PO DAILY PRN Rx Instructions: administer with meals and/or snacks montelukast [Singulair] 10 mg tablet 10 mg PO DAILY fluticasone propionate [Flovent HFA] 110 mcg/actuation HFA aerosol inhaler 1 puff inhalation BID acetaminophen [Tylenol Extra Strength] 500 mg tablet 500 mg PO Q6H PRN abiraterone [Zytiga] 500 mg Tablet 1,500 mg PO DAILY Rx Instructions: must be taken on empty stomach, at least 1 hr before or 2 hrs after a meal/food hydrochlorothiazide 25 mg tablet 1 tab PO DAILY prednisone 5 mg tablet 1 tab PO DAILY Discharge Instructions Instructions: Gastrointestinal Bleeding (DC) Stand Alone Forms: Nursing Discharge Form Referrals: Daniel Hunt [Primary Care Provider] - (Please call Tuesday to make a follow up appointment) Robbi Gutierrez MD [ [facility] STAFF PHYSICIAN] - None (1- 2 weeks for EGD ) Activity:: Activity as Tolerated Equipment/Supplies:: No Equipment Needed Diet:: As Tolerated Discharge Orders Discharge Orders: Discharge Order (Routine); Ordered 11/15/21 Ordered By: Tawana Gallardo Other Ambulatory Orders: Complete Blood Count w/Diff (Routine) Timeframe: [id number] Facility: [facility] - Location: Laboratory Outpatient - [facility] Ordered By: Tawana Gallardo Discharge Data Discharge Date/Time-TO BE ENTERED AT DEPARTURE: 11/15/21 13:16 DS: Summary Time Spent with Patient providing and/or coordinating discharge services: Less than 30 minutes Status at Discharge Functional status at discharge: independent ambulation Overall status at discharge: patient is back to baseline Mental Status: mental status grossly normal Speech and Movement: speech and movement normal Mood: congruent mood Affect: normal affect Exam Psych Mental Status: mental status grossly normal Speech and Movement: speech and movement normal Mood: congruent mood Affect: normal affect DS: Data Vitals/I&O Vitals and I&O: Vital Signs Temperature 36.4 C L 11/15/21 08:01 Temperature Source Tympanic 11/15/21 08:01 Pulse 70 11/15/21 08:01 Pulse Rhythm Regular 11/15/21 08:00 Pulse 93 H 11/13/21 12:50 Respiratory Rate 18 11/15/21 08:01 Respiratory Effort Non-Labored 11/15/21 08:00 Respiratory Depth Normal 11/15/21 08:00 Respiratory Pattern Normal 11/15/21 08:00 Blood Pressure 132/77 11/15/21 08:01 Blood Pressure Mean 100 11/13/21 13:02 Blood Pressure Position Supine 11/13/21 09:56 Pulse Oximetry 98 11/15/21 08:01 Oxygen Delivery Method Room Air 11/15/21 08:01 Oxygen Flow Rate 0 11/15/21 08:01 Pain Level 0 11/15/21 08:01 Comment 11/13/21 09:56 Intake & Output 11/14/21 11/14/21 11/15/21 11:59 23:59 11:59 Intake Total 240 / 1620 1380 / 1620 1040 / 1040 Output Total 300 / 950 650 / 950 600 / 600 Balance -60 / 670 730 / 670 440 / 440 Intake: IV 400 / 400 Oral 240 / 1220 980 / 1220 1040 / 1040 Output: Urine 300 / 950 650 / 950 600 / 600 Other: Urine Color Straw Pale Yellow Yellow Urine Appearance Clear Clear Clear Urine Odor None None Stool Occult Blood Positive Stool Size Small Small Stool Characteristics Hard Hard Brown Voiding Methods Toilet Toilet Urinal Data Completed and Pending Labs on day of discharge: Labs from last 24 hours 11/15/21 11/15/21 07:20 07:20 WBC 4.09 L RBC 2.98 L Hgb 10.0 L Hct 27.2 L MCV 91 D MCH 33.6 H MCHC 36.8 H D RDW 12.0 Plt Count 143 MPV 9.7 Immature Gran % 0.5 Neutrophils % 55.2 Lymphocytes % 28.1 Monocytes % 8.1 Eosinophils % 7.1 Basophils % 1.0 Nucleated RBC % 0.0 Absolute Neutrophils 2.26 Absolute Lymphocytes 1.15 L Absolute Monocytes 0.33 Absolute Eosinophils 0.29 Absolute Basophils 0.04 Sodium 143 Potassium 3.5 Chloride 108 H Carbon Dioxide 29.0 Anion Gap 6.0 BUN 15 Creatinine 0.8 Estimated GFR/1.73 m2 >= 60.00 Glucose 97 Calcium 8.1 L Magnesium 2.0 PFSH All Active Problems Hypertension (Chronic) Prostate cancer metastatic to bone (Acute) Acute upper GI bleeding (Acute) Upper GI bleeding (Acute) Bilateral impacted cerumen (Acute) Sensorineural hearing loss (SNHL) of both ears (Acute) Bone metastasis (Acute) Elevated PSA (Acute) Surgical History History of appendectomy Social History Smoking/Tobacco Use Status: Never Smoking risk assessment performed?: Yes Alcohol Intake: current Alcohol Intake frequency: a few times a week Alcohol type: beer Drug use: Never Substance use type: does not use Do you feel safe at home: Yes Do you feel safe in your relationship?: Yes
--- NOTE | 2021-11-15 12:12 | PDOC.CMDIS ---
- If Service Date Differs Date of service: 11/15/21 Time of Service: 12:12 LACE Index Scoring Tool - Questions: Length of Stay (in days): 1 Acuity (Admit via E.D.?): Yes Comorbidities: Any Tumor, Metastatic Solid Tumor E.D. Visits: 2 - Answers: Total Score: 11 Risk of Readmission: High Risk Care Management Discharge Reason for Hospitalization: Upper GI bleeding, Prostate cancer metastatic to bone Discharge Plan: Anoop is discharged home via private vehicle with . New RX's are transmitted to [facility]. Anoop will call his PCP Tuesday to schedule a follow up appointment. Recommend Anoop schedule an EGD in the next 1-2 weeks. Anoop will follow up with community providers and discharge plan of care as prescribed. Patient/Family Education Needs: Review discharge instructions, limitations, medications and plan to follow up with his PCP and surgical for an EGD in the next 1-2 weeks. Review ask me three.
== END 2021-11-15 13:16 | disposition home or self-care (01) ==
LOC: ER 12:35 → MS 13:22
PROVIDERS: Nurse Practitioner Acute Care; Nurse Practitioner Family; Admitting Provider Internal Medicine; Emergency Provider Physician Assistant; PCP Family Medicine; Visit Provider Internal Medicine
DX: K92.0 Hematemesis (principal); C61 Malignant neoplasm of prostate; C79.51 Secondary malignant neoplasm of bone; I10 Essential (primary) hypertension; Z79.899 Other long term (current) drug therapy; M84.58XA Pathological fracture in neoplastic disease, other specified site, initial encounter for fracture; N20.0 Calculus of kidney; Z20.822 Contact with and (suspected) exposure to COVID-19
CPT/HCPCS: 36415; 71275; 74177; 80048; 80053; 83690; 86850; 86900; 86901; 87635; 93005; 96361; 96365; 96366; 96374; 96375; 96376; 99203; 99285; 83735; 84484; 85014; 85018; 85025; 85610; 85730; 93010; 99217; 99219; 99225; G0378; J3475; J3480; J7512

== ENCOUNTER → 2021-12-02 13:01 | Outpatient (BNVA) | payer MEDICARE, BC, SELFPAY | PROVIDERS: PCP Family Medicine; Referring Provider Family Medicine; Visit Provider Surgery | DX: K92.0 Hematemesis (principal) | CPT/HCPCS: 99213 ==

== ENCOUNTER → 2021-12-30 11:32 | Outpatient (BNVA) | payer MEDICARE, BC, SELFPAY | PROVIDERS: PCP Family Medicine; Referring Provider Family Medicine; Visit Provider Surgery | DX: K92.0 Hematemesis (principal) | CPT/HCPCS: 99215 ==

== ENCOUNTER → 2022-01-06 01:46 | Outpatient (CLI) | payer MEDICARE, BC, SELFPAY ==
--- NOTE | 2022-01-06 | DI.CT_ITS ---
Exam(s) CT CHEST/ABD/PEL W EXAM: CT CHEST/ABD/PEL W CLINICAL HISTORY: PROSTATE CANCER MEST TO BONE C79.51 RESTAGING TECHNIQUE: CT examination of the chest, abdomen, and pelvis was performed utilizing intravenous inf usion of 100 cc of Omnipaque 350 with biphasic hepatic imaging. Oral contrast was also administered. COMPARISON: CT CT CHEST PE ABD PELVIS W from 11/13/2021 FINDINGS: Lungs are clear. No pleural effusion. No pleural based mass. No mediastinal or hilar adenopathy. No axillary or supraclavicular adenopathy. Tracheobronchial haven e appears intact. No evidence of pulmonary embolic disease. Unremarkable appearance of thoracic aorta and major branch vessels. The liver appears normal with no suspicious focal hepatic lesion identified. Tiny presumed hepatic c yst again seen, unchanged Spleen is unremarkable in appearance. Pancreas appears intact. Adrenals appear normal. Small nonobstructing left renal stone again noted. No evidence of urinary tract obstruction. Urinar y bladder is nearly empty.. Abdominal aorta and major visceral branches appear intact. No focal bowel pathology. Appendix is normal. No evidence of diverticulitis. No abdominal or pelvic adenopathy. No significant abdominal wall hernia. Widespread bony metastases again noted with multiple vertebral compression fractures, no gross interv al change from prior examination of November 13. IMPRESSION: Widespread bony metastatic disease in a patient with prostatic carcinoma, no gross interval change ap pearance comparison with prior examination of November 13.. RADIATION DOSE DELIVERED: 1,297.72mGy.cm Total DLP 1,297.72mGy.cm Total DLP !Error CTDIvol DATA REPOSITORY: All CT scans at this facility are submitted to the National Radiology Data Registry (NRDR) Dose Index Registry (DIR) with the [employer] (ACR). RADIATION OPTIMIZATION: All CT scans at this facility use at least one of these dose optimization te chniques: automated exposure control; mA and/or kV adjustment per patient size (includes targeted exa ms where dose is matched to clinical indication); or iterative reconstruction.
--- NOTE | 2022-01-06 10:00 | DI.NM_ITS ---
Exam(s) KS BONE SCAN WHOLE BODY GRP EXAM: KS BONE SCAN WHOLE BODY GRP CLINICAL HISTORY: PROSTATE CANCER METS TO BONE C79.51 RESTAGING. TECHNIQUE: Injected Dose: 25 mCi Tc-99m MDP Delayed Images: 2-3 hours. COMPARISON: KS BONE/JOINT IMAGE WB from 03/25/2021 FINDINGS: Symmetric axial uptake. Bilateral renal excretion is identified. There has been an overall decrease i n the signal intensity of the multiple axial and appendicular bony metastases compared to 03/25/2021. No new areas of radiotracer uptake are seen in the axial or appendicular skeleton. IMPRESSION: 1. No new areas of increased radiotracer uptake are seen in the axial or appendicular skeleton since 03/25/2021. DATA REPOSITORY:
[2022-01-06 10:10] LABS: Abs Immature Grans 0.02 10^3/uL (0.0-0.06); Absolute Basophil Count 0.06 10^3/uL (0.0-0.2); Absolute Eosinophil Count 0.56 10^3/uL (0.0-0.7); Absolute Lymphocyte Count 1.14 10^3/uL (1.2-3.4); Absolute Monocyte Count 0.49 10^3/uL (0.1-0.8); Absolute Neutrophil Count 1.97 10^3/uL (1.2-6.7); Basophils % 1.4; Eosinophils % 13.2; HCT 39.5 % (40.0-50.0); HGB 13.1 g/dL (13.5-17.5); Immature Grans % 0.5; Lymphocytes % 26.9; MCH 30.4 pg (27.0-33.0); MCHC 33.2 % (32.0-36.0); MCV 92 fL (80-95); MPV 9.7 fL (8.0-11.0); Monocytes % 11.6; Neutrophils % 46.4; Platelet Count 203 10^3/uL (130-400); RBC 4.31 10^6/uL (4.36-5.78); RDW 12.5 % (11.8-14.1); RDW-SD 41.5 fL; WBC 4.24 10^3/uL (4.4-10.8)
[2022-01-06] MEDS: Barium Sulfate 2% W/V-Berry Smoothie 450 ML BTL 900 ML PO (10:15)
[2022-01-06 10:22] LABS: ALT 23 U/L (16-63); AST 18 U/L (15-37); Albumin 4.4 g/dL (3.4-5.0); Alkaline Phosphatase 59 U/L (46-116); Anion Gap 7.9 mmol/L (3-11); BUN 25 mg/dL (7-18); Bilirubin, Total 0.4 mg/dL (0.2-1.0); CO2 30.1 mmol/L (21.0-32.0); Calcium 9.2 mg/dL (8.5-10.1); Chloride 102 mmol/L (98-107); Estimated GFR 80.47 (mL/min/1.73m2); Glucose 101 mg/dL (74-106); Potassium 3.7 mmol/L (3.5-5.1); Sodium 140 mmol/L (136-145); Total Protein 7.4 g/dL (6.4-8.2)
[2022-01-06] MEDS: Omnipaque 350 MG/ML 100 ML BTL IJ (11:36)
[2022-01-09 10:25] LABS: Testosterone, Total <7.0 ng/dL (240-950)
== END ==
PROVIDERS: PCP Family Medicine; Visit Provider Internal Medicine
DX: C61 Malignant neoplasm of prostate (principal); C79.51 Secondary malignant neoplasm of bone
CPT/HCPCS: 74177; 78306; 80053; 84153; 84403; 71260; 85025; J3490

== ENCOUNTER 2022-01-25 15:56 | Outpatient (CLI) | payer MEDICARE, BC, SELFPAY ==
[2022-01-25 15:57] LABS: Abs Immature Grans 0.02 10^3/uL (0.0-0.06); Absolute Basophil Count 0.08 10^3/uL (0.0-0.2); Absolute Eosinophil Count 0.69 10^3/uL (0.0-0.7); Absolute Lymphocyte Count 1.46 10^3/uL (1.2-3.4); Absolute Monocyte Count 0.61 10^3/uL (0.1-0.8); Absolute Neutrophil Count 3.19 10^3/uL (1.2-6.7); Basophils % 1.3; Eosinophils % 11.4; HCT 40.7 % (40.0-50.0); HGB 13.5 g/dL (13.5-17.5); Immature Grans % 0.3; Lymphocytes % 24.1; MCH 29.7 pg (27.0-33.0); MCHC 33.2 % (32.0-36.0); MCV 90 fL (80-95); MPV 9.9 fL (8.0-11.0); Monocytes % 10.1; Neutrophils % 52.8; Platelet Count 231 10^3/uL (130-400); RBC 4.55 10^6/uL (4.36-5.78); RDW 12.5 % (11.8-14.1); RDW-SD 41.3 fL; WBC 6.05 10^3/uL (4.4-10.8)
[2022-01-25 17:26] LABS: ALT 30 U/L (16-63); AST 16 U/L (15-37); Albumin 4.4 g/dL (3.4-5.0); Alkaline Phosphatase 64 U/L (46-116); Anion Gap 7.2 mmol/L (3-11); BUN 20 mg/dL (7-18); Bilirubin, Total 0.4 mg/dL (0.2-1.0); CO2 29.8 mmol/L (21.0-32.0); CREATININE 0.9 mg/dL (0.70-1.30); Calcium 9.4 mg/dL (8.5-10.1); Chloride 101 mmol/L (98-107); Estimated GFR 91.31 (mL/min/1.73m2); Glucose 91 mg/dL (74-106); Potassium 3.6 mmol/L (3.5-5.1); Sodium 138 mmol/L (136-145); Total Protein 7.5 g/dL (6.4-8.2)
[2022-01-29 12:14] LABS: Testosterone, Total <7.0 ng/dL (240-950)
== END 2022-01-25 15:57 | disposition home or self-care (01) ==
LOC: LBO 16:00
PROVIDERS: PCP Family Medicine; Visit Provider Internal Medicine
DX: C61 Malignant neoplasm of prostate (principal); C79.51 Secondary malignant neoplasm of bone
CPT/HCPCS: 36415; 80053; 84153; 84403; 85025

== ENCOUNTER 2022-03-10 03:40 | Outpatient (CLI) | payer MEDICARE, BC, SELFPAY ==
[2022-03-10 12:55] LABS: Abs Immature Grans 0.01 10^3/uL (0.0-0.06); Absolute Basophil Count 0.04 10^3/uL (0.0-0.2); Absolute Eosinophil Count 0.19 10^3/uL (0.0-0.7); Absolute Lymphocyte Count 1.32 10^3/uL (1.2-3.4); Absolute Monocyte Count 0.44 10^3/uL (0.1-0.8); Basophils % 0.9; Eosinophils % 4.4; HCT 39.6 % (40.0-50.0); HGB 13.6 g/dL (13.5-17.5); Immature Grans % 0.2; Lymphocytes % 30.8; MCH 30.1 pg (27.0-33.0); MCHC 34.3 % (32.0-36.0); MCV 88 fL (80-95); MPV 9.1 fL (8.0-11.0); Monocytes % 10.3; Neutrophils % 53.4; Platelet Count 201 10^3/uL (130-400); RBC 4.52 10^6/uL (4.36-5.78); RDW-SD 41.9 fL; WBC 4.28 10^3/uL (4.4-10.8)
[2022-03-10 12:56] LABS: Absolute Neutrophil Count 2.29 10^3/uL (1.2-6.7)
[2022-03-10 13:08] LABS: ALT 24 U/L (16-63); AST 17 U/L (15-37); Albumin 4.3 g/dL (3.4-5.0); Alkaline Phosphatase 59 U/L (46-116); Anion Gap 5.8 mmol/L (3-11); BUN 20 mg/dL (7-18); Bilirubin, Total 0.5 mg/dL (0.2-1.0); CO2 31.2 mmol/L (21.0-32.0); Calcium 9.5 mg/dL (8.5-10.1); Chloride 102 mmol/L (98-107); Estimated GFR 80.47 (mL/min/1.73m2); Glucose 103 mg/dL (74-106); Potassium 3.8 mmol/L (3.5-5.1); Sodium 139 mmol/L (136-145); Total Protein 7.5 g/dL (6.4-8.2)
[2022-03-11 12:48] LABS: PSA, Ultrasensitive 4.5 ng/mL (<= 6.5)
[2022-03-12 14:46] LABS: Testosterone, Total <7.0 ng/dL (240-950)
== END 2022-03-10 03:41 | disposition home or self-care (01) ==
PROVIDERS: PCP Family Medicine; Visit Provider Internal Medicine
DX: C61 Malignant neoplasm of prostate (principal); C79.51 Secondary malignant neoplasm of bone
CPT/HCPCS: 36415; 80053; 84153; 84403; 85025

== ENCOUNTER 2022-03-30 02:16 | Outpatient (CLI) | payer MEDICARE, BC, SELFPAY ==
[2022-03-30 10:23] LABS: Absolute Basophil Count 0.05 10^3/uL (0.0-0.2); Absolute Eosinophil Count 0.27 10^3/uL (0.0-0.7); Absolute Lymphocyte Count 1.42 10^3/uL (1.2-3.4); Absolute Monocyte Count 0.49 10^3/uL (0.1-0.8); Absolute Neutrophil Count 2.14 10^3/uL (1.2-6.7); Basophils % 1.1; Eosinophils % 6.2; HGB 13.7 g/dL (13.5-17.5); Lymphocytes % 32.5; MCH 30.8 pg (27.0-33.0); MCHC 35.1 % (32.0-36.0); MCV 88 fL (80-95); MPV 9.3 fL (8.0-11.0); Monocytes % 11.2; Platelet Count 204 10^3/uL (130-400); RBC 4.45 10^6/uL (4.36-5.78); RDW 13.8 % (11.8-14.1); RDW-SD 43.8 fL; WBC 4.37 10^3/uL (4.4-10.8)
[2022-03-30 10:38] LABS: ALT 19 U/L (16-63); AST 17 U/L (15-37); Albumin 4.3 g/dL (3.4-5.0); Alkaline Phosphatase 69 U/L (46-116); Anion Gap 7.6 mmol/L (3-11); BUN 23 mg/dL (7-18); Bilirubin, Total 0.4 mg/dL (0.2-1.0); CO2 28.4 mmol/L (21.0-32.0); CREATININE 0.9 mg/dL (0.70-1.30); Calcium 9.2 mg/dL (8.5-10.1); Chloride 104 mmol/L (98-107); Estimated GFR 91.31 (mL/min/1.73m2); Glucose 115 mg/dL (74-106); Sodium 140 mmol/L (136-145); Total Protein 7.4 g/dL (6.4-8.2)
[2022-03-31 15:27] LABS: PSA, Ultrasensitive 3.1 ng/mL (<= 6.5)
[2022-04-03 01:22] LABS: Testosterone, Total <7.0 ng/dL (240-950)
== END 2022-03-30 02:17 | disposition home or self-care (01) ==
LOC: LBO 02:16
PROVIDERS: PCP Family Medicine; Visit Provider Internal Medicine
DX: C61 Malignant neoplasm of prostate (principal); C79.51 Secondary malignant neoplasm of bone
CPT/HCPCS: 36415; 80053; 84153; 84403; 85025

== ENCOUNTER 2022-07-20 02:24 | Outpatient (CLI) | payer MEDICARE, BC, SELFPAY ==
[2022-07-20 15:21] LABS: Abs Immature Grans 0.01 10^3/uL (0.0-0.06); Absolute Basophil Count 0.04 10^3/uL (0.0-0.2); Absolute Eosinophil Count 0.19 10^3/uL (0.0-0.7); Absolute Lymphocyte Count 1.19 10^3/uL (1.2-3.4); Absolute Monocyte Count 0.49 10^3/uL (0.1-0.8); Absolute Neutrophil Count 2.39 10^3/uL (1.2-6.7); Basophils % 0.9; Eosinophils % 4.4; HCT 37.5 % (40.0-50.0); HGB 12.9 g/dL (13.5-17.5); Immature Grans % 0.2; Lymphocytes % 27.6; MCH 30.1 pg (27.0-33.0); MCHC 34.4 % (32.0-36.0); MCV 88 fL (80-95); MPV 9.1 fL (8.0-11.0); Monocytes % 11.4; Neutrophils % 55.5; Platelet Count 203 10^3/uL (130-400); RBC 4.28 10^6/uL (4.36-5.78); RDW 12.7 % (11.8-14.1); RDW-SD 40.1 fL; WBC 4.31 10^3/uL (4.4-10.8)
[2022-07-20 16:37] LABS: ALT 20 U/L (16-63); AST 13 U/L (15-37); Alkaline Phosphatase 54 U/L (46-116); Anion Gap 8.2 mmol/L (3-11); BUN 24 mg/dL (7-18); Bilirubin, Total 0.3 mg/dL (0.2-1.0); CO2 29.8 mmol/L (21.0-32.0); CREATININE 0.8 mg/dL (0.70-1.30); Calcium 8.6 mg/dL (8.5-10.1); Chloride 103 mmol/L (98-107); Estimated GFR 94.62 (mL/min/1.73m2); Glucose 125 mg/dL (74-106); Potassium 3.4 mmol/L (3.5-5.1); Sodium 141 mmol/L (136-145)
[2022-07-25 13:39] LABS: Testosterone, Total <7.0 ng/dL (240-950)
== END 2022-07-20 02:25 | disposition home or self-care (01) ==
PROVIDERS: PCP Family Medicine; Visit Provider Internal Medicine
DX: C61 Malignant neoplasm of prostate (principal); C79.51 Secondary malignant neoplasm of bone
CPT/HCPCS: 36415; 80053; 84153; 84403; 85025

== ENCOUNTER 2022-10-03 16:41 | Emergency (ER) | payer MEDICARE, BC, SELFPAY ==
[2022-10-03 16:58] VITALS: BP 155/77; PULSE 79; RESP 20; TEMP 36.3; O2SAT 99
--- NOTE | 2022-10-03 17:15 | DI.CT_ITS ---
Exam(s) CT ABDOMEN PELVIS W EXAM: CT ABDOMEN PELVIS W CLINICAL HISTORY: left flank pain, hematuria, prostate ca TECHNIQUE: Imaging Protocol: Axial computed tomography images with coronal and sagittal reformatted images were created and reviewed CONTRAST MATERIAL: Intravenous: Omnipaque 350 Contrast volume:100 mL Oral: No COMPARISON: CT CT CHEST/ABD/PEL W from 01/06/2022 FINDINGS: ABDOMEN: Lung Bases: Coronary artery calcifications and/or stents are present. Liver: Normal density. No measurable mass. Portal, Superior Mesenteric, and Splenic Veins: Unremarkable. Gallbladder and Biliary Tract: No radiodense calculus or dilation. Pancreas: Normal density, no abnormal calcifications or inflammatory process. Spleen: Normal. Adrenals: No masses seen. Kidneys: Normal size, contour and axis. There is a 4 mm stone in the proximal left ureter with minima l hydronephrosis. There are tiny hypodensities in the kidneys bilaterally. These are stable. These likely reflect small cysts. No follow-up is recommended. Abdominal Aorta: Abdominal portion non-dilated. Atherosclerosis. Bowel: There is diverticulosis in the colon. There is mild stranding seen around a section of the di stal sigmoid colon. Acute diverticulitis cannot be excluded. No evidence of appendicitis. No evide nce of bowel obstruction or bowel wall thickening. Peritoneal Cavity: No ascites, collection or mesenteric inflammatory response. No free air. Lymph Nodes: Within normal limits. Bones: Diffuse osseous metastatic disease is present. There are again seen marked compression fractu re deformities of T12 and L3 which arch unchanged. Soft Tissues: There is a moderate size fat containing umbilical hernia. There is a fat containing le ft inguinal hernia. PELVIS: Bladder: Symmetric distention, no gross wall thickening. Reproductive Organs: There is an enlarged prostate gland. Lymph Nodes: Within normal limits. Bones: Within normal limits for the patient's age. IMPRESSION: 1. 4 mm proximal left ureteral stone causing mild hydronephrosis. 2. Colonic diverticulosis with findings suggestive of mild diverticulitis in the distal sigmoid colon . No abscess or free air. 3. Diffuse sclerotic metastatic disease is again noted with stable chronic compression fracture defor mities of T12 and L1. RADIATION DOSE DELIVERED: 665.92mGy.cm Total DLP DATA REPOSITORY: All CT scans at this facility are submitted to the National Radiology Data Registry (NRDR) Dose Index Registry (DIR) with the [employer] (ACR). RADIATION OPTIMIZATION: All CT scans at this facility use at least one of these dose optimization te chniques: automated exposure control; mA and/or kV adjustment per patient size (includes targeted exa ms where dose is matched to clinical indication); or iterative reconstruction.
--- NOTE | 2022-10-03 17:24 | ED.GENADUL_ITS ---
Discharge Plan Disposition Patient Disposition: Home Condition: Improving Discharge Details Clinical Impression: Kidney stone, Hematuria Primary Care Provider: Christina Portillo ED Provider: Daniel Grimes Home Meds and New Rx's Prescriptions: New tamsulosin 0.4 mg capsule 0.4 mg PO QHS 5 Days Qty: 5 0RF No Action lactase 4,500 unit tablet 4,500 unit PO DAILY PRN Rx Instructions: administer with meals and/or snacks montelukast [Singulair] 10 mg tablet 10 mg PO DAILY fluticasone propionate [Flovent HFA] 110 mcg/actuation HFA aerosol inhaler 1 puff inhalation BID acetaminophen [Tylenol Extra Strength] 500 mg tablet 500 mg PO Q6H PRN calcium carbonate [Calcium 500] 500 mg calcium (1,250 mg) tablet,chewable 500 mg PO BID potassium chloride 20 mEq tablet,ER particles/crystals 20 meq PO DAILY hydrochlorothiazide 25 mg tablet 1 tab PO DAILY bicalutamide [Casodex] 50 mg tablet Patient Comments: Take 1 tablet by mouth once a day sucralfate 1 gram tablet Patient Comments: TAKE 1 TABLET BY MOUTH 4 TIMES DAILY - BEFORE MEALS AND AT BEDTIME pantoprazole 40 mg tablet,delayed release (DR/EC) PO Patient Comments: Take 1 tablet by mouth twice a day Xtandi 40 mg Capsule 160 mg PO DAILY Discharge Instructions Instructions: Kidney Stones (ED), Hematuria (ED) Additional Instructions: Please take medication as prescribed. Please return to emergency part for any worsening symptoms. Medical Decision Making 72-year-old male history of stage IV prostate cancer status post chemotherapy in 2000, with metastases to bone presents with left flank discomfort and hematuria associate with nausea at this afternoon. Able to void completely. No history of kidney stones. Hemodynamically stable resting comfortably no acute distress abdomen soft nontender nondistended. No CVA tenderness. Consider UTI versus complication of prostate cancer versus kidney stone versus less likely pyelonephritis. Screening labs imaging antiemetics close reassessment of symptoms 20: 14 evidence of left UPJ kidney stone. No evidence of JEFERSON no evidence of UTI. Have started patient on tamsulosin. Patient feeling comfortable no acute distress would like to go home. Urine clearing. Given home care instructions and return precautions. Incidental finding of possible diverticulitis not consistent with patient's history and physical no abdominal pain nausea vomiting or diarrhea, no fever. HPI General Date/Time Provider Initiated Documentation: 10/03/22 17:10 . HPI Narrative: 72-year-old male history of stage IV prostate cancer with metastases to bone presents with hematuria and left flank pain today. Mild nausea. Related Data Home Medications Medication Instructions Recorded Confirmed acetaminophen 500 mg tablet 500 mg PO Q6H PRN 10/14/20 10/03/22 (Tylenol Extra Strength) fluticasone propionate 110 1 puff inhalation BID 10/14/20 10/03/22 mcg/actuation HFA aerosol inhaler (Flovent HFA) lactase 4,500 unit tablet 4,500 unit PO DAILY PRN 10/14/20 10/03/22 montelukast 10 mg tablet 10 mg PO DAILY 10/14/20 10/03/22 (Singulair) hydrochlorothiazide 25 mg tablet 1 tab PO DAILY 11/13/21 10/03/22 calcium carbonate 500 mg calcium 500 mg PO BID 12/02/21 10/03/22 (1,250 mg) chewable tablet (Calcium 500) potassium chloride 20 mEq 20 meq PO DAILY 12/02/21 10/03/22 tablet,extended release(part/cryst) bicalutamide 50 mg tablet (Casodex) mg 10/03/22 10/03/22 enzalutamide 40 mg capsule (Xtandi) 160 mg PO DAILY 10/03/22 10/03/22 pantoprazole 40 mg tablet,delayed mg PO 10/03/22 10/03/22 release sucralfate 1 gram tablet 10/03/22 10/03/22 tamsulosin 0.4 mg capsule 0.4 mg PO QHS 5 days #5 caps 10/03/22 Previous Rx's Medication Instructions Recorded tamsulosin 0.4 mg capsule 0.4 mg PO QHS 5 days #5 caps 10/03/22 Allergies Allergy/AdvReac Type Severity Reaction Status Date / Time lactose Allergy Mild Unverified 10/03/22 17:23 General Stated Complaint: Urinary ROSAURA: 3 Review of Systems Narrative: Review of Systems Constitutional: negative Eyes: negative ENT: negative Cardiovascular: negative Respiratory: negative Gastrointestinal: Nausea : Hematuria Musculoskeletal: negative Skin: negative Neurologic: negative Psych: negative PFSH All Active Problems (Updated 10/03/22 @ 20:15 by Daniel Grimes MD) Kidney stone (Chronic) Hematuria (Acute) BPPV (benign paroxysmal positional vertigo) (Acute) Hypertension (Chronic) Prostate cancer metastatic to bone (Acute) Bilateral impacted cerumen (Acute) Sensorineural hearing loss (SNHL) of both ears (Acute) Bone metastasis (Acute) Elevated PSA (Acute) Surgical History History of appendectomy Social History Smoking/Tobacco Use Status: Never Smoking risk assessment performed?: Yes Alcohol Intake: current Alcohol Intake frequency: a few times a week Alcohol type: beer Drug use: Never Substance use type: does not use Do you feel safe at home: Yes Do you feel safe in your relationship?: Yes Exam Narrative Exam Narrative: Physical Examination General: alert, awake, cooperative, resting comfortably, no acute distress HEENT: normocephalic, atraumatic; PERRL, EOM intact, conjunctiva normal; no nasal discharge; moist mucous membranes, oral and pharyngeal mucosa normal, tolerating secretions Neck: supple, trachea midline; full ROM Chest: normal to inspection Respiratory: normal respiratory effort, speaking in full sentences, clear to auscultation, no wheezing, rales or rhonchi Cardiac: regular rate, regular rhythm, S1S2 intact, no murmurs rubs or gallops GI: abdomen soft, non-tender, non-distended; no palpable mass or hepatosplenomegaly : No CVA tenderness Skin: no lesions, rashes or trauma appreciated Neuro: AAOx3, normal speech, moving all extremities Psych: Appropriate mood and affect Course Vital Signs Vital signs: Vital Signs Temperature 36.3 C L 10/03/22 16:58 Pulse 79 10/03/22 16:58 Respiratory Rate 20 10/03/22 16:58 Blood Pressure 155/77 H 10/03/22 16:58 Pulse Oximetry 99 10/03/22 16:58 Temperature 36.3 C L 10/03/22 16:58 Temperature Source Oral 10/03/22 16:58 Pulse 79 10/03/22 16:58 Respiratory Rate 20 10/03/22 16:58 Respiratory Effort Normal 10/03/22 17:04 Blood Pressure 155/77 H 10/03/22 16:58 Blood Pressure Position Sitting 06/25/23 16:58 Pulse Oximetry 99 10/03/22 16:58 Oxygen Delivery Method Room Air 10/03/22 16:58 Oxygen Flow Rate 0 10/03/22 16:58 Pain Level 0 10/03/22 17:21
[2022-10-03 17:52] LABS: Bilirubin Small (Negative); Blood Large (Negative); Clarity Cloudy (Clear); Glucose Negative (Negative); Ketones Trace mg/dL (Negative); Leukocyte Esterase Negative (Negative); Nitrite Negative (Negative); Specific Gravity 1.025 (1.005-1.025); Urobilinogen 0.2 mg/dL (Up to 0.2); pH 5.5 (5-8)
[2022-10-03 17:57] LABS: Abs Immature Grans 0.01 10^3/uL (0.0-0.06); Absolute Basophil Count 0.06 10^3/uL (0.0-0.2); Absolute Eosinophil Count 0.16 10^3/uL (0.0-0.7); Absolute Lymphocyte Count 1.14 10^3/uL (1.2-3.4); Absolute Monocyte Count 0.55 10^3/uL (0.1-0.8); Absolute Neutrophil Count 4.35 10^3/uL (1.2-6.7); Eosinophils % 2.6; HCT 37.8 % (40.0-50.0); HGB 12.8 g/dL (13.5-17.5); Immature Grans % 0.2; Lymphocytes % 18.2; MCH 29.8 pg (27.0-33.0); MCHC 33.9 % (32.0-36.0); MCV 88 fL (80-95); MPV 9.1 fL (8.0-11.0); Monocytes % 8.8; Neutrophils % 69.2; Platelet Count 245 10^3/uL (130-400); RDW 13.3 % (11.8-14.1); RDW-SD 42.9 fL; WBC 6.27 10^3/uL (4.4-10.8)
[2022-10-03] MEDS: Ondansetron 4 MG/2 ML VIAL IVP (17:59)
[2022-10-03] MEDS: Normal Saline 500 ML 1000 ML IV (18:00)
[2022-10-03 18:13] LABS: ALT 19 U/L (16-63); AST 16 U/L (15-37); Albumin 4.4 g/dL (3.4-5.0); Alkaline Phosphatase 67 U/L (46-116); Anion Gap 7.8 mmol/L (3-11); BUN 22 mg/dL (7-18); Bilirubin, Total 0.6 mg/dL (0.2-1.0); CO2 28.2 mmol/L (21.0-32.0); CREATININE 0.9 mg/dL (0.70-1.30); Calcium 9.6 mg/dL (8.5-10.1); Chloride 104 mmol/L (98-107); Estimated GFR 90.74 (mL/min/1.73m2); Glucose 107 mg/dL (74-106); Potassium 4.2 mmol/L (3.5-5.1); Sodium 140 mmol/L (136-145)
[2022-10-03 18:29] LABS: PTT Activated 27.2 sec (21.5-31.9); Prothrombin Time 10.5 sec (9.3-11.0)
[2022-10-03 18:30] LABS: Bacteria Negative HPF (Negative); C & S Indicated? No; Crystals Moderate Amorphous HPF (Negative); Epithelial Cells Rare HPF (Negative); Mucus Moderate (Negative); RBC >50 HPF (0-2); WBC Negative HPF (0-5)
[2022-10-03] MEDS: Normal Saline - Diluent 50 ML VIAL IV (19:01)
[2022-10-03] MEDS: Omnipaque 350 MG/ML 100 ML BTL IJ (19:01)
[2022-10-03] MEDS: Tamsulosin 0.4 MG CAPCR PO (19:35)
--- NOTE | 2022-10-03 19:52 | DI.VRAD_ITS ---
PROCEDURE INFORMATION: Exam: CT Abdomen And Pelvis With Contrast Exam date and time: 10/03/2022 7:05 PM Age: 72 years old Clinical indication: Other: Left flank pain, hematuria, prostate CA TECHNIQUE: Imaging protocol: Computed tomography of the abdomen and pelvis with contrast. Contrast material: 350; Contrast volume: 100 ml; Contrast route: INTRAVENOUS (IV); COMPARISON: CT CHEST/ABD/PEL W 01/06/2022 11:02 AM FINDINGS: Minimal basilar subsegmental atelectasis versus scarring Liver: Fatty infiltration noted. Faint hypodensity in the right lobe too small to characterize Gallbladder and bile ducts: No calcified stones. No ductal dilation. Pancreas: No ductal dilation. Spleen: No splenomegaly. Adrenal glands: No mass. Kidneys and ureters: Left UPJ calculus measuring 2-3 mm with mild left hydronephrosis Left renal cysts and additional bilateral renal hypodensities too small to characterize Stomach and bowel: Colonic diverticulosis with minimal surrounding infiltration images 60-61 distally No obstruction. No mucosal thickening. Appendix: No evidence of appendicitis. Intraperitoneal space: Unremarkable. No free air. No significant fluid collection. Vasculature: No abdominal aortic aneurysm. Lymph nodes: No enlarged lymph nodes. Urinary bladder: Unremarkable as visualized. Reproductive: Unremarkable as visualized. Bones/joints: Diffuse sclerotic changes in the osseous structures with chronic loss of vertebral body height most pronounced at L3 No acute fracture. Soft tissues: Fat containing inguinal hernias greater on the left. Small fat containing periumbilical hernia IMPRESSION: Mild left obstructive uropathy secondary to a 2-3 mm UPJ calculus/proximal ureteral calculus Minimal distal sigmoid colonic diverticulitis without gross perforation or abscess Diffuse sclerotic metastatic disease with pathologic fracture/chronic compression deformity at L3 COMMENTS: Consistent with the [employer]'s Incidental Findings Committee white paper (J Am Chandrika Radiol 2018): Any incidental renal lesion less than 1 cm or classified as too small to characterize, or any incidental cystic renal lesion characterized as simple-appearing, is likely benign. No follow-up imaging is recommended for these lesions per consensus recommendations based on imaging criteria. Dictated and Authenticated by: Tony Booth MD. Ordering:ELVIN Sanchez MD
[2022-10-03 20:30] VITALS: BP 130/84; PULSE 79; RESP 16; TEMP 36.3; O2SAT 95
== END 2022-10-03 20:33 | disposition home or self-care (01) ==
PROVIDERS: Emergency Provider Emergency Medicine; PCP Family Medicine
DX: N20.0 Calculus of kidney (principal); R31.9 Hematuria, unspecified
CPT/HCPCS: 80053; 96361; 96374; 99285; 74177; 81003; 81015; 85025; 85610; 85730; 99284; J2405; J3490

== ENCOUNTER 2022-10-13 01:08 | Outpatient (CLI) | payer MEDICARE, BC, SELFPAY ==
[2022-10-13] MEDS: Barium Sulfate 2% W/V-Berry Smoothie 450 ML BTL 900 ML PO (09:43)
[2022-10-13] MEDS: Normal Saline - Diluent 50 ML VIAL IJ (10:57)
[2022-10-13] MEDS: Normal Saline Flush 10 ML SYR IVP (10:57)
[2022-10-13] MEDS: Omnipaque 350 MG/ML 500 ML BTL-Imaging package 100 ML IJ (10:58)
--- NOTE | 2022-10-13 11:00 | DI.CT_ITS ---
Exam(s) CT CHEST/ABD/PEL W EXAM: CT CHEST/ABD/PEL W CLINICAL HISTORY: RESTAGING METASTATIC PROSTATE CA, C79.51, METS TO BONE. TECHNIQUE: Imaging Protocol: Axial computed tomography images with coronal and sagittal reformatted images were created and reviewed CONTRAST MATERIAL: Intravenous: Omnipaque 350 Contrast volume:100 ml Oral: yes / COMPARISON: CT CT CHEST/ABD/PEL W from 01/06/[address] ABDOMEN PELVIS W from 10/03/2022 FINDINGS: CHEST: Tracheobronchial tree: Patent where visualized. Pulmonary parenchyma: No consolidation or dominant measurable mass. No pulmonary nodules. Pleura: No effusion or pneumothorax. Lymph nodes: Within normal limits. Aorta: Thoracic portion non-dilated. Heart: Normal size. Minimal coronary artery calcifications. Bones: Diffuse sclerotic bony metastases, in the spine, ribs and sternum as well as visualized should ers. Stable upper, mid and lower thoracic compression fractures.. ABDOMEN: Liver: Normal density. No measurable mass. Gallbladder and biliary tract: No radiodense calculus or dilation. Pancreas: Normal density, no abnormal calcifications or inflammatory process. Spleen: Normal. Kidneys: Normal size, contour and axis. No radiodense stones or obstructive uropathy. No suspicious m asses seen. Adrenal glands: No masses seen. Aorta: Abdominal portion non-dilated. Lymph nodes: Within normal limits. Soft tissues: Fatty containing umbilical hernia. Fatty containing left inguinal hernia. PELVIS: Bladder: Symmetric distention, no gross wall thickening. Bowel: Severe diverticulosis of the sigmoid. No obstruction or bowel wall thickening. Peritoneal cavity: No ascites, collection or mesenteric inflammatory response. Bones: Diffuse sclerotic bony metastases. Stable severe L3 compression fracture. No new compression f ractures. Reproductive organs: Enlarged prostate.. IMPRESSION: Diffuse sclerotic bony metastases. No evidence of new metastatic disease elsewhere in the chest, abdo men or pelvis. RADIATION DOSE DELIVERED: 1,381.64mGy.cm Total DLP DATA REPOSITORY: All CT scans at this facility are submitted to the National Radiology Data Registry (NRDR) Dose Index Registry (DIR) with the [employer] ([employer]). RADIATION OPTIMIZATION: All CT scans at this facility use at least one of these dose optimization te chniques: automated exposure control; mA and/or kV adjustment per patient size (includes targeted exa ms where dose is matched to clinical indication); or iterative reconstruction.
--- NOTE | 2022-10-13 13:15 | DI.NM_ITS ---
Exam(s) FL BONE SCAN WHOLE BODY GRP EXAM: FL BONE SCAN WHOLE BODY GRP CLINICAL HISTORY: RESTAGING METASTATIC PROSTATE CA, C79.51, ASSESS TX RESPONSE. TECHNIQUE: Injected Dose: 25 mCi Tc-99m MDP Delayed Images: 2-3 hours. COMPARISON: [facility] BONE SCAN WHOLE BODY GRP from 01/06/2022 FINDINGS: No visible change in diffuse increased uptake in the spine, ribs and pelvis. No new areas of abnorma l uptake. Renal activity is noted. IMPRESSION: 1. Stable findings of metastatic disease in the spine, pelvis and ribs. DATA REPOSITORY:
== END 2022-10-13 01:28 ==
LOC: DI 01:08
PROVIDERS: PCP Family Medicine; Visit Provider Nurse Practitioner Adult Health
DX: C79.51 Secondary malignant neoplasm of bone (principal)
CPT/HCPCS: 74177; 78306; 71260

== ENCOUNTER 2022-12-29 03:30 | Outpatient (CLI) | payer MEDICARE, BC, SELFPAY ==
[2022-12-29 13:57] LABS: Abs Immature Grans 0.02 10^3/uL (0.0-0.06); Absolute Basophil Count 0.05 10^3/uL (0.0-0.2); Absolute Eosinophil Count 0.38 10^3/uL (0.0-0.7); Absolute Lymphocyte Count 1.44 10^3/uL (1.2-3.4); Absolute Monocyte Count 0.56 10^3/uL (0.1-0.8); Absolute Neutrophil Count 2.87 10^3/uL (1.2-6.7); Basophils % 0.9; Eosinophils % 7.1; HCT 38.8 % (40.0-50.0); HGB 13.2 g/dL (13.5-17.5); Immature Grans % 0.4; Lymphocytes % 27.1; MCH 29.7 pg (27.0-33.0); MCV 87 fL (80-95); MPV 8.9 fL (8.0-11.0); Monocytes % 10.5; Platelet Count 237 10^3/uL (130-400); RBC 4.44 10^6/uL (4.36-5.78); RDW 13.6 % (11.8-14.1); RDW-SD 43.7 fL; WBC 5.32 10^3/uL (4.4-10.8)
[2022-12-29 15:00] LABS: ALT 16 U/L (16-63); AST 15 U/L (15-37); Albumin 4.3 g/dL (3.4-5.0); Alkaline Phosphatase 63 U/L (46-116); Anion Gap 7.9 mmol/L (3-11); BUN 21 mg/dL (7-18); Bilirubin, Total 0.5 mg/dL (0.2-1.0); CO2 30.1 mmol/L (21.0-32.0); CREATININE 0.9 mg/dL (0.70-1.30); Calcium 9.6 mg/dL (8.5-10.1); Chloride 101 mmol/L (98-107); Estimated GFR 90.74 (mL/min/1.73m2); Glucose 118 mg/dL (74-106); Potassium 3.4 mmol/L (3.5-5.1); Sodium 139 mmol/L (136-145); Total Protein 7.6 g/dL (6.4-8.2)
[2022-12-30 16:27] LABS: PSA, Ultrasensitive 1.8 ng/mL (<= 6.5)
[2023-01-03 20:27] LABS: Testosterone, Total <7.0 ng/dL (240-950)
== END 2022-12-29 03:31 | disposition home or self-care (01) ==
LOC: LBO 03:31
PROVIDERS: Internal Medicine; PCP Family Medicine; Visit Provider Family Medicine
DX: C61 Malignant neoplasm of prostate (principal); C79.51 Secondary malignant neoplasm of bone
CPT/HCPCS: 36415; 80053; 84153; 84403; 85025

== ENCOUNTER 2023-03-22 04:46 | Outpatient (CLI) | payer MEDICARE, BC, SELFPAY ==
[2023-03-22 15:16] LABS: Abs Immature Grans 0.01 10^3/uL (0.0-0.06); Absolute Basophil Count 0.04 10^3/uL (0.0-0.2); Absolute Eosinophil Count 0.19 10^3/uL (0.0-0.7); Absolute Lymphocyte Count 1.35 10^3/uL (1.2-3.4); Absolute Monocyte Count 0.54 10^3/uL (0.1-0.8); Absolute Neutrophil Count 2.61 10^3/uL (1.2-6.7); Basophils % 0.8; HCT 37.6 % (40.0-50.0); HGB 13.2 g/dL (13.5-17.5); Immature Grans % 0.2; Lymphocytes % 28.5; MCH 30.8 pg (27.0-33.0); MCHC 35.1 % (32.0-36.0); MCV 88 fL (80-95); MPV 8.6 fL (8.0-11.0); Monocytes % 11.4; Neutrophils % 55.1; Platelet Count 226 10^3/uL (130-400); RBC 4.28 10^6/uL (4.36-5.78); RDW 13.1 % (11.8-14.1); WBC 4.74 10^3/uL (4.4-10.8)
[2023-03-22 15:32] LABS: ALT 16 U/L (16-63); AST 11 U/L (15-37); Albumin 4.1 g/dL (3.4-5.0); Alkaline Phosphatase 56 U/L (46-116); Anion Gap 10.3 mmol/L (3-11); BUN 22 mg/dL (7-18); Bilirubin, Total 0.5 mg/dL (0.2-1.0); CO2 28.7 mmol/L (21.0-32.0); CREATININE 0.9 mg/dL (0.70-1.30); Calcium 9.5 mg/dL (8.5-10.1); Chloride 100 mmol/L (98-107); Estimated GFR 90.74 (mL/min/1.73m2); Glucose 106 mg/dL (74-106); Potassium 3.5 mmol/L (3.5-5.1); Sodium 139 mmol/L (136-145); Total Protein 7.2 g/dL (6.4-8.2)
[2023-03-25 22:22] LABS: Testosterone, Total <7.0 ng/dL (240-950)
== END 2023-03-22 04:47 | disposition home or self-care (01) ==
PROVIDERS: PCP Family Medicine; Visit Provider Nurse Practitioner
DX: C61 Malignant neoplasm of prostate (principal)
CPT/HCPCS: 36415; 80053; 84153; 84403; 85025

== ENCOUNTER 2023-06-17 01:59 | Outpatient (CLI) | payer MEDICARE, BC, SELFPAY ==
[2023-06-17 15:45] LABS: Abs Immature Grans 0.02 10^3/uL (0.0-0.06); Absolute Basophil Count 0.06 10^3/uL (0.0-0.2); Absolute Lymphocyte Count 1.29 10^3/uL (1.2-3.4); Absolute Monocyte Count 0.63 10^3/uL (0.1-0.8); Absolute Neutrophil Count 2.72 10^3/uL (1.2-6.7); Basophils % 1.2; Eosinophils % 4.1; HCT 38.2 % (40.0-50.0); HGB 13.4 g/dL (13.5-17.5); Immature Grans % 0.4; Lymphocytes % 26.2; MCH 31.2 pg (27.0-33.0); MCHC 35.1 % (32.0-36.0); MCV 89 fL (80-95); MPV 9.1 fL (8.0-11.0); Monocytes % 12.8; Neutrophils % 55.3; Platelet Count 215 10^3/uL (130-400); RDW 12.9 % (11.8-14.1); RDW-SD 41.9 fL; WBC 4.92 10^3/uL (4.4-10.8)
[2023-06-17 16:36] LABS: ALT 17 U/L (16-63); AST 14 U/L (15-37); Albumin 4.2 g/dL (3.4-5.0); Alkaline Phosphatase 57 U/L (46-116); Anion Gap 10.1 mmol/L (3-11); BUN 22 mg/dL (7-18); Bilirubin, Total 0.4 mg/dL (0.2-1.0); CO2 27.9 mmol/L (21.0-32.0); CREATININE 0.9 mg/dL (0.70-1.30); Calcium 9.8 mg/dL (8.5-10.1); Chloride 102 mmol/L (98-107); Estimated GFR 90.74 (mL/min/1.73m2); Glucose 103 mg/dL (74-106); Potassium 3.8 mmol/L (3.5-5.1); Sodium 140 mmol/L (136-145); Total Protein 7.3 g/dL (6.4-8.2)
[2023-06-20 13:47] LABS: PSA, Ultrasensitive 1.5 ng/mL (<= 6.5)
[2023-06-21 16:35] LABS: Testosterone, Total <7.0 ng/dL (240-950)
== END 2023-06-17 02:00 | disposition home or self-care (01) ==
PROVIDERS: PCP Family Medicine; Visit Provider Nurse Practitioner
DX: C61 Malignant neoplasm of prostate (principal)
CPT/HCPCS: 36415; 80053; 84153; 84403; 85025

== ENCOUNTER 2023-09-19 06:00 | Outpatient (CLI) | payer MEDICARE, BC, SELFPAY ==
[2023-09-19 16:55] LABS: Abs Immature Grans 0.02 10^3/uL (0.0-0.06); Absolute Basophil Count 0.04 10^3/uL (0.0-0.2); Absolute Eosinophil Count 0.14 10^3/uL (0.0-0.7); Absolute Lymphocyte Count 1.42 10^3/uL (1.2-3.4); Absolute Monocyte Count 0.56 10^3/uL (0.1-0.8); Absolute Neutrophil Count 3.16 10^3/uL (1.2-6.7); Basophils % 0.7 %; Eosinophils % 2.6 %; HCT 39.1 % (40.0-50.0); HGB 13.3 g/dL (13.5-17.5); Immature Grans % 0.4 %; Lymphocytes % 26.6 %; MCH 30.5 pg (27.0-33.0); MCV 90 fL (80-95); MPV 9.4 fL (8.0-11.0); Monocytes % 10.5 %; Neutrophils % 59.2 %; Platelet Count 227 10^3/uL (130-400); RBC 4.36 10^6/uL (4.36-5.78); RDW-SD 42.2 fL; WBC 5.34 10^3/uL (4.4-10.8)
[2023-09-19 17:24] LABS: ALT 21 U/L (16-63); AST 15 U/L (15-37); Albumin 4.4 g/dL (3.4-5.0); Alkaline Phosphatase 52 U/L (46-116); Anion Gap 10.7 mmol/L (3-11); BUN 26 mg/dL (7-18); Bilirubin, Total 0.6 mg/dL (0.2-1.0); CO2 28.3 mmol/L (21.0-32.0); Calcium 9.6 mg/dL (8.5-10.1); Chloride 101 mmol/L (98-107); Estimated GFR 79.47 (mL/min/1.73m2); Glucose 104 mg/dL (74-106); Potassium 3.9 mmol/L (3.5-5.1); Sodium 140 mmol/L (136-145); Total Protein 7.5 g/dL (6.4-8.2)
[2023-09-22 16:14] LABS: PSA, Ultrasensitive 1.9 ng/mL (<= 6.5)
[2023-09-23 16:54] LABS: Testosterone, Total <7.0 ng/dL (240-950)
== END 2023-09-19 06:01 | disposition home or self-care (01) ==
PROVIDERS: PCP Family Medicine; Visit Provider Nurse Practitioner
DX: C61 Malignant neoplasm of prostate (principal)
CPT/HCPCS: 36415; 80053; 84153; 84403; 85025

== ENCOUNTER 2023-12-13 04:43 | Outpatient (CLI) | payer MEDICARE, BC, SELFPAY ==
[2023-12-13 15:41] LABS: Abs Immature Grans 0.02 10^3/uL (0.0-0.06); Absolute Basophil Count 0.04 10^3/uL (0.0-0.2); Absolute Lymphocyte Count 1.33 10^3/uL (1.2-3.4); Absolute Monocyte Count 0.51 10^3/uL (0.1-0.8); Absolute Neutrophil Count 2.17 10^3/uL (1.2-6.7); Basophils % 0.9 %; Eosinophils % 6.9 %; HCT 34.8 % (40.0-50.0); HGB 11.8 g/dL (13.5-17.5); Immature Grans % 0.5 %; Lymphocytes % 30.4 %; MCHC 33.9 % (32.0-36.0); MCV 91 fL (80-95); MPV 9.4 fL (8.0-11.0); Monocytes % 11.7 %; Neutrophils % 49.6 %; Platelet Count 222 10^3/uL (130-400); RBC 3.81 10^6/uL (4.36-5.78); RDW 13.5 % (11.8-14.1); WBC 4.37 10^3/uL (4.4-10.8)
[2023-12-13 16:03] LABS: ALT 16 U/L (16-63); AST 15 U/L (15-37); Alkaline Phosphatase 56 U/L (46-116); Anion Gap 9.7 mmol/L (3-11); BUN 23 mg/dL (7-18); Bilirubin, Total 0.43 mg/dL (0.2-1.0); CO2 27.3 mmol/L (21.0-32.0); Calcium 9.3 mg/dL (8.5-10.1); Chloride 104 mmol/L (98-107); Estimated GFR 79.47 (mL/min/1.73m2); Glucose 115 mg/dL (74-106); Potassium 3.5 mmol/L (3.5-5.1); Sodium 141 mmol/L (136-145); Total Protein 6.6 g/dL (6.4-8.2)
[2023-12-16 13:49] LABS: PSA, Ultrasensitive 1.5 ng/mL (<= 6.5)
[2023-12-17 13:37] LABS: Testosterone, Total <7.0 ng/dL (240-950)
== END 2023-12-13 04:44 | disposition home or self-care (01) ==
PROVIDERS: PCP Family Medicine; Visit Provider Nurse Practitioner
DX: C61 Malignant neoplasm of prostate (principal)
CPT/HCPCS: 36415; 80053; 84153; 84403; 85025

== ENCOUNTER 2023-12-30 09:41 | Outpatient (CLI) | payer MEDICARE, BC, SELFPAY ==
--- NOTE | 2023-12-30 | DI.RAD_ITS ---
Exam(s) XR RIBS BI ONLY EXAM: XR RIBS BI ONLY CLINICAL HISTORY: RIB PAIN,PLEURODYNIA,R07.81. COMPARISON: CT CT CHEST/ABD/PEL W from 10/13/2022 FINDINGS: LUNGS: Clear. No pneumothorax is seen. BONES: No displaced rib fracture is seen. Sclerotic lesions are noted in both humeri as well as thor acic spine. Multiple rib lesions are visible. Compression fractures again noted in the mid thoracic , T12 as well as lumbar spine. IMPRESSION: Diffuse sclerotic bony metastatic disease is again demonstrated. There is no evidence of fracture. The lungs appear clear. No pleural effusion.
== END 2023-12-30 10:01 ==
PROVIDERS: PCP Family Medicine; Visit Provider Family Medicine
DX: C79.51 Secondary malignant neoplasm of bone; C61 Malignant neoplasm of prostate
CPT/HCPCS: 71110

== ENCOUNTER 2024-03-02 02:38 | Outpatient (CLI) | payer MEDICARE, BC, SELFPAY ==
[2024-03-02 16:03] LABS: Abs Immature Grans 0.03 10^3/uL (0.0-0.06); Absolute Basophil Count 0.04 10^3/uL (0.0-0.2); Absolute Eosinophil Count 0.12 10^3/uL (0.0-0.7); Absolute Lymphocyte Count 1.17 10^3/uL (1.2-3.4); Absolute Monocyte Count 0.48 10^3/uL (0.1-0.8); Absolute Neutrophil Count 2.32 10^3/uL (1.2-6.7); Eosinophils % 2.9 %; HGB 11.8 g/dL (13.5-17.5); Immature Grans % 0.7 %; Lymphocytes % 28.1 %; MCH 29.4 pg (27.0-33.0); MCHC 32.8 % (32.0-36.0); MCV 90 fL (80-95); MPV 9.5 fL (8.0-11.0); Monocytes % 11.5 %; Neutrophils % 55.8 %; Platelet Count 224 10^3/uL (130-400); RBC 4.02 10^6/uL (4.36-5.78); RDW 13.6 % (11.8-14.1); RDW-SD 44.1 fL; WBC 4.16 10^3/uL (4.4-10.8)
[2024-03-02 16:51] LABS: ALT 17 U/L (16-63); AST 15 U/L (15-37); Albumin 4.3 g/dL (3.4-5.0); Alkaline Phosphatase 55 U/L (46-116); Anion Gap 10.2 mmol/L (3-11); BUN 22 mg/dL (7-18); Bilirubin, Total 0.45 mg/dL (0.2-1.0); CO2 27.8 mmol/L (21.0-32.0); CREATININE 0.8 mg/dL (0.70-1.30); Calcium 9.6 mg/dL (8.5-10.1); Chloride 105 mmol/L (98-107); Estimated GFR 93.45 (mL/min/1.73m2); Glucose 109 mg/dL (74-106); Potassium 3.7 mmol/L (3.5-5.1); Sodium 143 mmol/L (136-145); Total Protein 7.4 g/dL (6.4-8.2)
[2024-03-05 13:13] LABS: PSA, Ultrasensitive 1.4 ng/mL (<= 6.5)
[2024-03-07 12:51] LABS: Testosterone, Total <7.0 ng/dL (240-950)
== END 2024-03-02 02:39 | disposition home or self-care (01) ==
PROVIDERS: PCP Family Medicine; Visit Provider Nurse Practitioner
DX: C61 Malignant neoplasm of prostate (principal)
CPT/HCPCS: 36415; 80053; 84153; 84403; 85025

== ENCOUNTER 2024-05-23 04:49 | Outpatient (CLI) | payer MEDICARE, BC, SELFPAY ==
[2024-05-23 16:09] LABS: Abs Immature Grans 0.02 10^3/uL (0.0-0.06); Absolute Basophil Count 0.03 10^3/uL (0.0-0.2); Absolute Eosinophil Count 0.09 10^3/uL (0.0-0.7); Absolute Lymphocyte Count 1.19 10^3/uL (1.2-3.4); Absolute Monocyte Count 0.46 10^3/uL (0.1-0.8); Absolute Neutrophil Count 2.69 10^3/uL (1.2-6.7); Basophils % 0.7 %; HCT 32.6 % (40.0-50.0); Immature Grans % 0.4 %; Lymphocytes % 26.6 %; MCHC 30.7 % (32.0-36.0); MCV 88 fL (80-95); MPV 9.3 fL (8.0-11.0); Monocytes % 10.3 %; Platelet Count 238 10^3/uL (130-400); RBC 3.71 10^6/uL (4.36-5.78); RDW 14.9 % (11.8-14.1); RDW-SD 47.9 fL; WBC 4.48 10^3/uL (4.4-10.8)
[2024-05-23 16:56] LABS: ALT 21 U/L (16-63); AST 13 U/L (15-37); Albumin 4.1 g/dL (3.4-5.0); Alkaline Phosphatase 58 U/L (46-116); Anion Gap 7.3 mmol/L (3-11); BUN 28 mg/dL (7-18); Bilirubin, Total 0.34 mg/dL (0.2-1.0); CO2 30.7 mmol/L (21.0-32.0); CREATININE 1.1 mg/dL (0.70-1.30); Calcium 9.6 mg/dL (8.5-10.1); Chloride 107 mmol/L (98-107); Estimated GFR 70.88 (mL/min/1.73m2); Glucose 109 mg/dL (74-106); Potassium 3.9 mmol/L (3.5-5.1); Sodium 145 mmol/L (136-145); Total Protein 7.2 g/dL (6.4-8.2)
[2024-05-26 10:08] LABS: PSA, Ultrasensitive 1.4 ng/mL (<= 6.5)
[2024-05-29 14:36] LABS: Testosterone, Total <7.0 ng/dL (240-950)
== END 2024-05-23 04:50 | disposition home or self-care (01) ==
LOC: LBO 04:49
PROVIDERS: PCP Family Medicine; Visit Provider Nurse Practitioner
DX: C61 Malignant neoplasm of prostate (principal); C79.51 Secondary malignant neoplasm of bone
CPT/HCPCS: 36415; 80053; 84153; 84403; 85025

== ENCOUNTER 2024-06-08 00:47 | Outpatient (CLI) | payer MEDICARE, BC, SELFPAY ==
[2024-06-08 14:33] LABS: Iron 35 ug/dL (65-175); Total Iron Binding Capacity 411 ug/dL (250-450); Transferrin Sat 9 % (20-55)
[2024-06-08 14:35] LABS: Ferritin 23 ng/mL (26-388); TSH 2.19 uIU/mL (0.36-3.74); Vitamin B12 264 pg/mL (193-986)
[2024-06-08 14:48] LABS: LDH 182 U/L (85-227)
[2024-06-11 09:22] LABS: Haptoglobin 136 mg/dL (32-197)
[2024-06-11 12:55] LABS: Albumin 68.5 % (55.8-66.1); Albumin g/dL 4.4 g/dL (3.6-5.2); Total Protein 6.4 g/dL (6.3-8.2)
[2024-06-11 14:50] LABS: Copper, Serum 113 mcg/dL (73-129)
== END 2024-06-08 00:48 | disposition home or self-care (01) ==
PROVIDERS: PCP Family Medicine; Visit Provider Nurse Practitioner Adult Health
DX: D64.9 Anemia, unspecified (principal); T56.894A Toxic effect of other metals, undetermined, initial encounter
CPT/HCPCS: 36415; 82525; 82607; 82728; 83010; 83540; 83550; 83615; 84165; 84443

== ENCOUNTER 2024-07-03 12:55 | Outpatient (REF) | payer MEDICARE, BC, SELFPAY ==
[2024-07-03 15:15] LABS: HCT 30.2 % (40.0-50.0); HGB 9.4 g/dL (13.5-17.5); MCH 26.2 pg (27.0-33.0); MCHC 31.1 % (32.0-36.0); MCV 84 fL (80-95); MPV 10.5 fL (8.0-11.0); Platelet Count 250 10^3/uL (130-400); RBC 3.59 10^6/uL (4.36-5.78); RDW 15.9 % (11.8-14.1); RDW-SD 47.2 fL; WBC 3.24 10^3/uL (4.4-10.8)
[2024-07-03 15:41] LABS: Calculated LDL 132 mg/dL (<100); Cholesterol 210 mg/dL (<200); HDL Cholesterol 52 mg/dL (>or=40); Triglyceride 131 mg/dL (<150)
[2024-07-03 15:44] LABS: Hemoglobin A1C 5.6 % (<5.7)
[2024-07-04 09:31] LABS: Hepatitis C Ab w Rflx HCV PCR Negative (Negative)
== END 2024-07-03 12:56 | disposition home or self-care (01) ==
LOC: NCHCN 12:55
PROVIDERS: PCP Family Medicine; Visit Provider Family Medicine
DX: Z13.220 Encounter for screening for lipoid disorders (principal); R73.9 Hyperglycemia, unspecified; D64.9 Anemia, unspecified; Z11.59 Encounter for screening for other viral diseases
CPT/HCPCS: 80061; 85027; 86803; 83036

== ENCOUNTER 2024-07-23 15:56 | Outpatient (REF) | payer MEDICARE, BC, SELFPAY ==
[2024-07-23 21:19] LABS: HGB 11.6 g/dL (13.5-17.5); MCH 27.9 pg (27.0-33.0); MCHC 31.4 % (32.0-36.0); MCV 89 fL (80-95); MPV 11.5 fL (8.0-11.0); Platelet Count 209 10^3/uL (130-400); RBC 4.16 10^6/uL (4.36-5.78); RDW 18.9 % (11.8-14.1); RDW-SD 60.8 fL; WBC 4.21 10^3/uL (4.4-10.8)
== END 2024-07-23 15:57 | disposition home or self-care (01) ==
LOC: NCHCN 15:56
PROVIDERS: PCP Family Medicine; Visit Provider Family Medicine
DX: D64.9 Anemia, unspecified (principal)
CPT/HCPCS: 85027

== ENCOUNTER 2024-08-23 14:14 | Outpatient (CLI) | payer MEDICARE, BC, SELFPAY ==
[2024-08-23 13:49] LABS: Abs Immature Grans 0.02 10^3/uL (0.0-0.06); Absolute Basophil Count 0.04 10^3/uL (0.0-0.2); Absolute Eosinophil Count 0.27 10^3/uL (0.0-0.7); Absolute Lymphocyte Count 1.17 10^3/uL (1.2-3.4); Absolute Monocyte Count 0.63 10^3/uL (0.1-0.8); Absolute Neutrophil Count 2.54 10^3/uL (1.2-6.7); Basophils % 0.9 %; Eosinophils % 5.8 %; HCT 36.5 % (40.0-50.0); HGB 12.6 g/dL (13.5-17.5); Immature Grans % 0.4 %; Lymphocytes % 25.1 %; MCH 30.6 pg (27.0-33.0); MCHC 34.5 % (32.0-36.0); MCV 89 fL (80-95); Monocytes % 13.5 %; Neutrophils % 54.3 %; Platelet Count 199 10^3/uL (130-400); RBC 4.12 10^6/uL (4.36-5.78); RDW 17.5 % (11.8-14.1); RDW-SD 56.7 fL; WBC 4.67 10^3/uL (4.4-10.8)
[2024-08-23 15:28] LABS: ALT 18 U/L (16-63); AST 18 U/L (15-37); Albumin 4.2 g/dL (3.4-5.0); Alkaline Phosphatase 66 U/L (46-116); Anion Gap 7.9 mmol/L (3-11); BUN 23 mg/dL (7-18); Bilirubin, Total 0.5 mg/dL (0.2-1.0); CO2 29.1 mmol/L (21.0-32.0); CREATININE 0.8 mg/dL (0.70-1.30); Calcium 9.5 mg/dL (8.5-10.1); Chloride 104 mmol/L (98-107); Estimated GFR 93.45 (mL/min/1.73m2); Glucose 107 mg/dL (74-106); Potassium 3.6 mmol/L (3.5-5.1); Sodium 141 mmol/L (136-145); Total Protein 6.7 g/dL (6.4-8.2)
[2024-08-23 18:31] LABS: Iron 291 ug/dL (65-175); Total Iron Binding Capacity 358 ug/dL (250-450); Transferrin Sat 81 % (20-55)
[2024-08-23 18:58] LABS: Ferritin 58 ng/mL (26-388); TSH 1.64 uIU/mL (0.36-3.74); Vitamin B12 236 pg/mL (193-986)
[2024-08-27 10:17] LABS: Haptoglobin 110 mg/dL (32-197)
[2024-08-27 12:13] LABS: PSA, Ultrasensitive 1.5 ng/mL (<= 6.5)
[2024-08-27 12:29] LABS: Albumin 68.9 % (55.8-66.1); Albumin g/dL 4.5 g/dL (3.6-5.2); Total Protein 6.6 g/dL (6.3-8.2)
[2024-08-28 15:00] LABS: Testosterone, Total <7.0 ng/dL (240-950)
== END 2024-08-23 14:15 | disposition home or self-care (01) ==
LOC: LBO 14:15
PROVIDERS: Nurse Practitioner Adult Health; PCP Family Medicine; Visit Provider Nurse Practitioner
DX: C61 Malignant neoplasm of prostate (principal); D64.9 Anemia, unspecified
CPT/HCPCS: 36415; 80053; 84153; 84403; 82607; 82728; 83010; 83540; 83550; 84165; 84443; 85025

== ENCOUNTER 2024-10-23 17:18 | Outpatient (REF) | payer MEDICARE, BC, SELFPAY ==
[2024-10-23 15:54] LABS: HCT 38.4 % (40.0-50.0); HGB 13.5 g/dL (13.5-17.5); MCH 33.5 pg (27.0-33.0); MCHC 35.2 % (32.0-36.0); MCV 95 fL (80-95); MPV 10.0 fL (8.0-11.0); Platelet Count 190 10^3/uL (130-400); RBC 4.03 10^6/uL (4.36-5.78); RDW 13.9 % (11.8-14.1); RDW-SD 48.6 fL; WBC 4.61 10^3/uL (4.4-10.8)
[2024-10-23 16:28] LABS: Iron 129 ug/dL (65-175); Total Iron Binding Capacity 348 ug/dL (250-450); Transferrin Sat 37 % (20-55)
[2024-10-23 17:16] LABS: Ferritin 83 ng/mL (26-388)
== END 2024-10-23 17:19 | disposition home or self-care (01) ==
LOC: NCHCN 17:18
PROVIDERS: PCP Family Medicine; Visit Provider Family Medicine
DX: D64.9 Anemia, unspecified (principal)
CPT/HCPCS: 85027; 82728; 83540; 83550

== ENCOUNTER 2024-11-14 02:11 | Outpatient (CLI) | payer MEDICARE, BC, SELFPAY ==
[2024-11-14 13:43] LABS: Abs Immature Grans 0.02 10^3/uL (0.0-0.06); HCT 37.2 % (40.0-50.0); HGB 13.2 g/dL (13.5-17.5); Immature Grans % 0.5 %; MCH 33.6 pg (27.0-33.0); MCHC 35.5 % (32.0-36.0); MCV 95 fL (80-95); MPV 9.0 fL (8.0-11.0); Platelet Count 181 10^3/uL (130-400); RBC 3.93 10^6/uL (4.36-5.78); RDW 13.3 % (11.8-14.1); RDW-SD 46.4 fL; WBC 3.83 10^3/uL (4.4-10.8)
[2024-11-14 13:58] LABS: ALT 21 U/L (16-63); AST 15 U/L (15-37); Albumin 4.1 g/dL (3.4-5.0); Alkaline Phosphatase 55 U/L (46-116); Anion Gap 6.3 mmol/L (3-11); BUN 24 mg/dL (7-18); Bilirubin, Total 0.7 mg/dL (0.2-1.0); CO2 30.7 mmol/L (21.0-32.0); Calcium 9.5 mg/dL (8.5-10.1); Chloride 104 mmol/L (98-107); Estimated GFR 92.87 (mL/min/1.73m2); Glucose 118 mg/dL (74-106); Potassium 3.6 mmol/L (3.5-5.1); Sodium 141 mmol/L (136-145); Total Protein 6.9 g/dL (6.4-8.2)
== END 2024-11-14 02:12 | disposition home or self-care (01) ==
PROVIDERS: PCP Family Medicine; Visit Provider Internal Medicine
DX: C61 Malignant neoplasm of prostate (principal)
CPT/HCPCS: 36415; 80053; 84153; 84403; 85025